=== PATIENT | male | born 1990 | race Caucasian/White ===

== ENCOUNTER 2016-05-19 18:18 | Emergency (ER) | payer SELFPAY ==
[~2016-05-19] VITALS: Ht 180.3 cm; Wt 72.6 kg
[2016-05-19 18:24] VITALS: BP 136/66
--- NOTE | 2016-05-19 19:01 | PHYS DOC ---
Past Medical History Past Medical History: No Pertinent History Past Surgical History: No Surgical History Alcohol Use: Occasionally Drug Use: Marijuana Social History Narrative: denies 05/19/16 Adult General Chief Complaint Chief Complaint: FINGER INJURY HPI HPI Patient is a 26 year old man who presents stating his left pinky finger is stuck in flex position at the PIP joint since he woke up this morning. He states that 2 months ago he had a laceration on the left pinky finger at the DIP joint. He states at that point he could flex and extend his finger at the MIP PIP joints but not DIP joint where the laceration was. He states the laceration healed up okay. Patient denies any new injuries. Review of Systems Review of Systems Constitutional: Denies fever or chills [] Eyes: Denies change in visual acuity, redness, or eye pain [] Musculoskeletal: left pinky finger is stuck in flex position at the PIP joint Integument: Denies rash or skin lesions [] Neurologic: Denies headache, focal weakness or sensory changes [] Endocrine: Denies polyuria or polydipsia [] Allergies Allergies Allergies Coded Allergies Type Severity Reaction Last Updated Verified No Known Drug Allergies 09/26/15 No Physical Exam Physical Exam Constitutional: Well developed, well nourished, no acute distress, non-toxic appearance. [] Skin: Warm, dry, no erythema, no rash. [] Back: No tenderness, no CVA tenderness. [] Extremities: Left pinky finger is in flexed position at the PIP joint. I was able to open up the left pinky finger. At that point he had full range of motion to the left pinky finger MIP PIP and DIP joints. +2 left radial pulse. Adequate ulnar radial medial sensation to the left fingers. Cap refill less than 2 seconds the left pinky finger. Neurologic: Alert and oriented X 3, normal motor function, normal sensory function, no focal deficits noted. [] Psychologic: Affect normal, judgement normal, mood normal. [] Current Patient Data Vital Signs Vital Signs Date Time Temp Pulse Resp B/P Pulse Ox O2 Delivery O2 Flow Rate FiO2 05/19/16 18:24 97.8 73 18 100 Room Air 97.8 EKG EKG [] Radiology/Procedures Radiology/Procedures [] Course & Med Decision Making Course & Med Decision Making Pertinent Labs and Imaging studies reviewed. (See chart for details) Patient is to the fingers of the left pinky finger. X-ray of the left pinky finger interpreted by Dr. Cleveland is negative for any acute findings. He was placed in a left pinky finger form splint by the Ed RN neurovascular exam done by me is normal. Cap refill <2 seconds. Ice elevation encouraged. Follow-up with Ortho in one week. Dragon Disclaimer Dragon Disclaimer This electronic medical record was generated, in whole or in part, using a voice recognition dictation system. Departure Departure Impression: Primary Impression: Trigger finger Disposition: HOME, SELF-CARE Condition: STABLE Referrals: NO PCP (PCP) JOHANNA TOVAR MD see him in one week Patient Instructions: Trigger Finger Problem Qualifiers Primary Impression: Trigger finger Trigger finger location: little finger Laterality: left Qualified Code: M65.352 - Trigger finger, left little finger JACEY EASON APRN May 19, 2016 19:01
--- NOTE | 2016-05-20 09:23 | RAD ---
Indication injury one month earlier. Pain and immobility. An AP view of the left hand was obtained as well as oblique and lateral imaging targeted to the small finger. No acute bony finding is seen. A significant soft tissue abnormality is not apparent.
== END 2016-05-19 19:10 | disposition home or self-care (01) ==
LOC: ER 18:18
DX: M65.352 Trigger finger, left little finger (principal); F12.10 Cannabis abuse, uncomplicated; W23.0XXA Caught, crushed, jammed, or pinched between moving objects, initial encounter; Y93.89 Activity, other specified; Y99.8 Other external cause status; Y92.89 Other specified places as the place of occurrence of the external cause
CPT/HCPCS: 29130; 73140; 99284-25

== ENCOUNTER 2016-10-22 20:37 | Emergency (ER) | payer SELFPAY ==
[~2016-10-22] VITALS: Ht 180.3 cm; Wt 72.7 kg
[2016-10-22 20:55] VITALS: BP 138/77
[2016-10-22 21:14] LABS: BILIRUBIN,URINE NEGATIVE (NEG); GLUCOSE,URINE NEGATIVE (NEG); NITRITE,URINE NEGATIVE (NEG); PH,URINE 6.5; PROTEIN,URINE NEGATIVE (NEG-TRACE); UROBILINOGEN,URINE 0.2 mg/dL (0.2 mg/dL)
[2016-10-22 21:19] LABS: BACTERIA,URINE 0 /HPF (0-FEW); RBC,URINE 0 /HPF (0-2); SQUAMOUS EPITHELIAL CELL,UR OCC /LPF; WBC,URINE 0 /HPF (0-4)
--- NOTE | 2016-10-22 21:28 | PHYS DOC ---
Past Medical History Past Medical History: Asthma Past Surgical History: No Surgical History Additional Information: PPD Alcohol Use: Occasionally Drug Use: Marijuana Adult General Chief Complaint Chief Complaint: SEXUALLY TRANSMITTED DISEASE HPI HPI 26-year-old male with no significant past medical history section active with a girl who he just found out has herpes. Patient has not had any herpes lesions but he came to the emergency department to get tested. She was last sexually active without protection with this partner this morning and would like to know this evening if he is going to get herpes. He has no discharge from his penis nor testicular swelling or pain. No fevers chills sweats or shaking chills patient otherwise feels well and he does report a "skin tag "above his penis is not sure what it is. He describes this evolved recently. Review of Systems Review of Systems Constitutional: Denies fever or chills [] Eyes: Denies change in visual acuity, redness, or eye pain [] HENT: Denies nasal congestion or sore throat [] Respiratory: Denies cough or shortness of breath [] Cardiovascular: No additional information not addressed in HPI [] GI: Denies abdominal pain, nausea, vomiting, bloody stools or diarrhea [] : Denies dysuria or hematuria [] Musculoskeletal: Denies back pain or joint pain [] Integument: Denies rash or skin lesions [] Neurologic: Denies headache, focal weakness or sensory changes [] Endocrine: Denies polyuria or polydipsia [] Allergies Allergies Allergies Coded Allergies Type Severity Reaction Last Updated Verified No Known Drug Allergies 09/26/15 No Physical Exam Physical Exam Well-appearing 26 male no acute distress benign visual exam nontender abdomen and pelvis. Normal appearing external genitalia with no penile discharge , scrotal tenderness or swelling. No inguinal adenopathy. Single skin lesion/skin tag consistent with genital wart above the base of his penis. No evidence of cellulitis in that distribution. Tender exam benign Constitutional: Well developed, well nourished, no acute distress, non-toxic appearance. [] HENT: Normocephalic, atraumatic, bilateral external ears normal, oropharynx moist, no oral exudates, nose normal. [] Eyes: PERRLA, EOMI, conjunctiva normal, no discharge. [] Neck: Normal range of motion, no tenderness, supple, no stridor. [] Cardiovascular:Heart rate regular rhythm, no murmur [] Lungs & Thorax: Bilateral breath sounds clear to auscultation [] Abdomen: Bowel sounds normal, soft, no tenderness, no masses, no pulsatile masses. [] Skin: Warm, dry, no erythema, no rash. [] Back: No tenderness, no CVA tenderness. [] Extremities: No tenderness, no cyanosis, no clubbing, ROM intact, no edema. [] Neurologic: Alert and oriented X 3, normal motor function, normal sensory function, no focal deficits noted. [] Psychologic: Affect normal, judgement normal, mood normal. [] Current Patient Data Vital Signs Vital Signs Date Time Temp Pulse Resp B/P (MAP) Pulse Ox O2 Delivery O2 Flow Rate FiO2 10/22/16 20:55 98.5 59 18 98 Room Air 98.5 Lab Values Laboratory Tests Test 10/22/16 21:05 Urine Color Yellow Urine Clarity Cloudy Urine pH 6.5 Urine Specific [place] 1.010 Urine Protein Negative mg/dL (NEG-TRACE) Urine Glucose (UA) Negative mg/dL (NEG) Urine Ketones (Stick) Negative mg/dL (NEG) Urine Blood Negative (NEG) Urine Nitrite Negative (NEG) Urine Bilirubin Negative (NEG) Urine Urobilinogen Dipstick 0.2 mg/dL (0.2 mg/dL) Urine Leukocyte Esterase Negative (NEG) Urine RBC 0 /HPF (0-2) Urine WBC 0 /HPF (0-4) Urine Squamous Epithelial Cells Occ /LPF Urine Bacteria 0 /HPF (0-FEW) EKG EKG [] Radiology/Procedures Radiology/Procedures [] Course & Med Decision Making Course & Med Decision Making Pertinent Labs and Imaging studies reviewed. (See chart for details) Impression presented for STD screening. He has no clinical evidence of herpes. Patient is a completely normal exam other than single child or lesion. No further workup or treatment indicated here. Discussed with patient at length importance of going to help department for STD screening as well as to discuss treatment options for his genital warts. No further workup or treatment indicated at this time. Patient agrees with outpatient follow-up and strict return precautions given. Patient aware that genital wart is contagious by contact and is aware to maintain good hand washing and contact precaution procedures. [] Dragon Disclaimer Dragon Disclaimer This electronic medical record was generated, in whole or in part, using a voice recognition dictation system. Departure Departure Impression: Primary Impression: Genital warts Additional Impression: STD (sexually transmitted disease) Disposition: 01 HOME, SELF-CARE Condition: GOOD Referrals: NO PCP (PCP) Patient Instructions: Safe Sex Additional Instructions: You have general warts. This is a sexually-transmitted disease caused by a virus. Follow-up with your doctor for reevaluation and to discuss possible treatments for this including cosmetic removal of the wart. Follow-up with the health department for reevaluation and complete STD screening in keeping with their available resources. Always wear condom if he chooses to be sexually active. Be aware that even a condom is not full proof and there is no guarantee a person would not contract a sexual transmitted disease including but not limited to genital warts or herpes from skin contact around the genital area. The only guaranteed way not to contract further sexual transmitted disease is abstinence. This means not having sex at all Problem Qualifiers JAVIER SHEPHERD MD Oct 22, 2016 21:28
== END 2016-10-22 21:37 | disposition home or self-care (01) ==
LOC: ER 20:37
DX: B07.9 Viral wart, unspecified (principal); A64 Unspecified sexually transmitted disease; J45.909 Unspecified asthma, uncomplicated; F17.200 Nicotine dependence, unspecified, uncomplicated
CPT/HCPCS: 81001; 87491; 87591; 99284

== ENCOUNTER 2017-08-09 17:19 | Emergency (ER) | payer BC | END 2017-08-09 17:57 | disposition home or self-care (01) | LOC: ER 17:57 | DX: K02.9 Dental caries, unspecified (principal); J45.909 Unspecified asthma, uncomplicated | CPT/HCPCS: 99283 ==

== ENCOUNTER 2018-08-04 19:45 | Emergency (ER) | payer SELFPAY ==
[~2018-08-04] VITALS: Ht 180.3 cm; Wt 72.6 kg
[~2018-08-04 19:45] MED LIST: PENI500T PO
[2018-08-04 20:00] VITALS: BP 125/60
[2018-08-04] MEDS ORDERED: DICL50TA4 PO (20:52)
[2018-08-04] MEDS ORDERED: PENI500T PO (20:52)
--- NOTE | 2018-08-04 20:53 | PHYS DOC ---
Past Medical History Past Medical History: No Pertinent History, Asthma Past Surgical History: No Surgical History Alcohol Use: Occasionally Drug Use: Marijuana Adult General Chief Complaint Chief Complaint: DENTAL PROBLEM HPI HPI Patient is a 28 year old female who presents complaining of 8 out of 10 left lower gum dental pain, symptoms began yesterday. States has seen a dentist before and they told him he needs to get a surgeon and have his wisdom teeth "cut down". Denies any fever or trismus. Review of Systems Review of Systems Constitutional: Denies fever or chills [] Eyes: Denies change in visual acuity, redness, or eye pain [] HENT: Reports dental pain. Denies nasal congestion or sore throat [] Musculoskeletal: Denies back pain or joint pain [] Integument: Denies rash or skin lesions [] Neurologic: Denies headache, focal weakness or sensory changes [] All other systems were reviewed and found to be within normal limits, except as documented in this note. Allergies Allergies Allergies Coded Allergies Type Severity Reaction Last Updated Verified No Known Drug Allergies 09/26/15 No Physical Exam Physical Exam Constitutional: Well developed, well nourished, no acute distress, non-toxic appearance. [] HENT: Normocephalic, atraumatic, bilateral external ears normal, oropharynx moist, no oral exudates, nose normal. [] Sells teeth on the left and lower gums are a broken and decayed, very poor dentition noted. No gum erythema. Skin: Warm, dry, no erythema, no rash. [] Back: No tenderness, no CVA tenderness. [] Extremities: No tenderness, no cyanosis, no clubbing, ROM intact, no edema. [] Neurologic: Alert and oriented X 3, normal motor function, normal sensory function, no focal deficits noted. [] Psychologic: Affect normal, judgement normal, mood normal. [] Current Patient Data Vital Signs Vital Signs Date Time Temp Pulse Resp B/P (MAP) Pulse Ox O2 Delivery O2 Flow Rate FiO2 08/04/18 20:00 98.6 71 16 125/60 (81) 96 Room Air 98.6 EKG EKG [] Radiology/Procedures Radiology/Procedures [] Course & Med Decision Making Course & Med Decision Making Pertinent Labs and Imaging studies reviewed. (See chart for details) This is a 28-year-old male patient presented to the ED today with dental pain, noted for infected dental caries, discharged in penicillin and diclofenac. Follow-up with his own dentist in [address] Disclaimer Dragon Disclaimer This electronic medical record was generated, in whole or in part, using a voice recognition dictation system. Departure Departure Impression: Primary Impression: Infected dental caries Additional Impression: Dentalgia Disposition: HOME, SELF-CARE Condition: STABLE (total dose) Referrals: NO PCP (PCP) follow up with your dentist in 1 week Patient Instructions: Dental Caries Additional Instructions: You were evaluated in the emergency room for dental infection, complete your antibiotics. Follow-up with your dentist as soon as you can. Take the prescribed pain medicine as needed for pain. Scripts Diclofenac Sodium (DICLOFENAC SODIUM) 50 Mg Tablet.dr 1 TAB PO BID, #20 TAB 0 Refills Prov: JACEY EASON APRN 08/04/18 Penicillin V Potassium (PENICILLIN V POTASSIUM) 500 Mg Tablet 1 TAB PO BID, #20 TAB Prov: JACEY EASON APRN 08/04/18 Problem Qualifiers JACEY EASON APRN Aug 04, 2018 20:53
== END 2018-08-04 21:02 | disposition home or self-care (01) ==
LOC: ER 19:45
DX: K02.9 Dental caries, unspecified (principal); J45.909 Unspecified asthma, uncomplicated
CPT/HCPCS: 99283

== ENCOUNTER 2018-11-25 22:31 | Emergency (ER) | payer SELFPAY ==
[~2018-11-25] VITALS: Ht 180.3 cm; Wt 72.6 kg
[~2018-11-25 22:31] MED LIST changes: +DICL50TA4 PO
[2018-11-25 23:24] VITALS: BP 116/56
[2018-11-26] MEDS ORDERED: GABA300C18 PO (00:04)
[2018-11-26] MEDS ORDERED: PENI500T PO (00:04)
[2018-11-26] MEDS ORDERED: NAPR-514 PO (00:04)
--- NOTE | 2018-11-26 00:05 | PHYS DOC ---
Past Medical History Past Medical History: No Pertinent History, Asthma Past Surgical History: No Surgical History Alcohol Use: Occasionally Drug Use: Marijuana Adult General Chief Complaint Chief Complaint: DENTAL PROBLEM HPI HPI Patient is a 28 year old male who presents to the ED today complaining of dental pain for couple days as well as numbness and tingling to bilateral upper extremities 4 weeks. Patient denies any known injury. Denies any neck pain. Denies any chest pain or shortness of breath. He states he has received new insurance from his job and will be able to start following up with her dentist and her primary care doctor if we give him one. Review of Systems Review of Systems Constitutional: Denies fever or chills [] Eyes: Denies change in visual acuity, redness, or eye pain [] HENT: Reports dental pain. Denies nasal congestion or sore throat [] Respiratory: Denies cough or shortness of breath [] Cardiovascular: No additional information not addressed in HPI [] GI: Denies abdominal pain, nausea, vomiting, bloody stools or diarrhea [] : Denies dysuria or hematuria [] Musculoskeletal: Reports numbness to bilateral upper extremities. Reports tingling to bilateral upper extremities. Denies back pain or joint pain [] Integument: Denies rash or skin lesions [] Neurologic: Denies headache, focal weakness or sensory changes [] All other systems were reviewed and found to be within normal limits, except as documented in this note. Allergies Allergies Allergies Coded Allergies Type Severity Reaction Last Updated Verified No Known Drug Allergies 09/26/15 No Physical Exam Physical Exam Constitutional: Well developed, well nourished, no acute distress, non-toxic appearance. [] HENT: Scattered dental caries noted. Normocephalic, atraumatic, bilateral external ears normal, oropharynx moist, no oral exudates, nose normal. [] Eyes: PERRLA, EOMI, conjunctiva normal, no discharge. [] Neck: Normal range of motion, no tenderness, supple, no stridor. [] Cardiovascular:Heart rate regular rhythm, no murmur [] Lungs & Thorax: Bilateral breath sounds clear to auscultation [] Abdomen: Bowel sounds normal, soft, no tenderness, no masses, no pulsatile masses. [] Skin: Warm, dry, no erythema, no rash. [] Back: No tenderness, no CVA tenderness. [] Extremities: No tenderness, no cyanosis, no clubbing, ROM intact, no edema. [] Neurologic: Alert and oriented X 3, normal motor function, normal sensory functi on, no focal deficits noted. [] Psychologic: Affect normal, judgement normal, mood normal. [] Current Patient Data Vital Signs Vital Signs Date Time Temp Pulse Resp B/P (MAP) Pulse Ox O2 Delivery O2 Flow Rate FiO2 11/25/18 23:24 97.0 47 14 116/56 (76) 98 Room Air 97.0 EKG EKG [] Radiology/Procedures Radiology/Procedures [] Course & Med Decision Making Course & Med Decision Making Pertinent Labs and Imaging studies reviewed. (See chart for details) This is a [age]-year-old male patient presenting to the ED today with dental caries as well as radiculopathy. Prescription for penicillin provided. Gabapentin provided. Naproxen as well as cyclobenzaprine. Follow-up with PCP and dentist. Lane Disclaimer Lane Disclaimer This electronic medical record was generated, in whole or in part, using a voice recognition dictation system. Departure Departure Impression: Primary Impression: Infected dental caries Additional Impressions: Dentalgia Radicular pain in right arm Radicular pain in left arm Disposition: 01 HOME, SELF-CARE Condition: STABLE Referrals: NO PCP (PCP) follow up with your dentist and primary care doctor Patient Instructions: Dental Caries Additional Instructions: You were evaluated in the emergency room for dental pain as well as radiculopathy. Take the prescribed medications as ordered. Follow-up with your dentist as well as a primary care doctor as soon as you can. Scripts Naproxen (NAPROXEN) 500 Mg Tablet 1 TAB PO BID, #20 TAB Prov: JACEY EASON APRN 11/26/18 Gabapentin (GABAPENTIN ) 300 Mg Capsule 300 MG PO TID for NEUROGENIC PAIN, #30 CAP Prov: JACEY EASON APRN 11/26/18 Penicillin V Potassium (PENICILLIN V POTASSIUM) 500 Mg Tablet 1 TAB PO BID, #20 TAB Prov: JACEY EASON [employer] 11/26/18 Problem Qualifiers JACEY EASON APRN Nov 26, 2018 00:04
== END 2018-11-26 00:20 | disposition home or self-care (01) ==
LOC: ER 22:31
DX: K02.9 Dental caries, unspecified (principal); K04.7 Periapical abscess without sinus; M54.10 Radiculopathy, site unspecified; J45.909 Unspecified asthma, uncomplicated
CPT/HCPCS: 99283

== ENCOUNTER 2018-11-26 09:44 | Inpatient (IN) | payer SELFPAY ==
[~2018-11-26] VITALS: Ht 180.3 cm; Wt 70.5 kg
[2018-11-26] VITALS (9 sets, daily range): BP systolic 112–126; BP diastolic 49–80
[~2018-11-26 09:44] MED LIST changes: +GABA300C18 PO; +NAPR-514 PO
--- NOTE | 2018-11-26 09:56 | PHYS DOC ---
Past Medical History Past Medical History: No Pertinent History, Asthma (TREY BARBOSA APRN) Past Surgical History: No Surgical History (TREY BARBOSA APRN) Alcohol Use: Occasionally Drug Use: Marijuana (TREY BARBOSA APRN) Adult General Chief Complaint Chief Complaint: ABDOMINAL PAIN HPI HPI Patient is a 28 year old male who presents with diffuse abdominal pain, awoke with pain today, vomited x2, normal stool today, no fevers or diarrhea, no urinary or testicular complaints. Denies trauma. No ETOH abuse. Seen here yesterday for dental pain, did not get medications filled Arrived via EMS, no hx of similar pain (TREY BARBOSA APRN) Review of Systems Review of Systems Constitutional: Denies fever or chills [] Eyes: Denies change in visual acuity, redness, or eye pain [] HENT: Denies nasal congestion or sore throat [] Respiratory: Denies cough or shortness of breath [] Cardiovascular: No additional information not addressed in HPI [] GI: Denies bloody stools or diarrhea []c/o diffuse abdominal pain and vomiting : Denies dysuria or hematuria [] Musculoskeletal: Denies back pain or joint pain [] Integument: Denies rash or skin lesions [] Neurologic: Denies headache, focal weakness or sensory changes [] Endocrine: Denies polyuria or polydipsia [] All other systems were reviewed and found to be within normal limits, except as documented in this note. (TREY BARBOSA APRN) Current Medications Current Medications Current Medications Medications (Trade) Dose Ordered Sig/Mar Start Time Stop Time Status Last Admin Dose Admin Info (CONTRAST GIVEN -- Rx MONITORING) 1 each PRN DAILY PRN 11/26/18 11:15 11/28/18 11:14 Iohexol (Omnipaque 240 Mg/ml) 30 ml 1X ONCE 11/26/18 11:00 11/26/18 11:03 DC 11/26/18 11:29 30 ML Iohexol (Omnipaque 300 Mg/ml) 75 ml 1X ONCE 11/26/18 11:00 11/26/18 11:03 DC 11/26/18 11:29 75 ML Morphine Sulfate (Morphine Sulfate) 4 mg 1X ONCE 11/26/18 10:00 11/26/18 10:01 DC 11/26/18 10:23 4 MG Ondansetron HCl (Zofran) 4 mg 1X ONCE 11/26/18 10:00 11/26/18 10:01 DC 11/26/18 10:23 4 MG Sodium Chloride 1,000 ml @ 1,000 mls/hr 1X ONCE 11/26/18 12:00 11/26/18 12:59 11/26/18 11:58 1,000 MLS/HR (TREY BARBOSA APRN) Allergies Allergies Allergies Coded Allergies Type Severity Reaction Last Updated Verified No Known Drug Allergies 09/26/15 No (TREY BARBOSA APRN) Physical Exam Physical Exam Constitutional: Well developed, well nourished, no acute distress, non-toxic appearance. [] HENT: Normocephalic, atraumatic, bilateral external ears normal, oropharynx moist, no oral exudates, nose normal. [] Eyes: PERRLA, EOMI, conjunctiva normal, no discharge. [] Neck: Normal range of motion, no tenderness, supple, no stridor. [] Cardiovascular:Heart rate regular rhythm, no murmur [] Lungs & Thorax: Bilateral breath sounds clear to auscultation [] Abdomen: Bowel sounds normal, soft, no masses, no pulsatile masses. [] reports diffuse TTP, soft,no distention, no masses, guarding entire abdomen, no rebound : no testicular pain or swelling Skin: Warm, dry, no erythema, no rash. [] Back: No tenderness, no CVA tenderness. [] Extremities: No tenderness, no cyanosis, no clubbing, ROM intact, no edema. [] Neurologic: Alert and oriented X 3, normal motor function, normal sensory function, no focal deficits noted. [] Psychologic: Affect normal, judgement normal, mood normal. [] (TREY BARBOSA APRN) Current Patient Data Vital Signs Vital Signs Date Time Temp Pulse Resp B/P (MAP) Pulse Ox O2 Delivery O2 Flow Rate FiO2 11/26/18 11:30 74 16 132/60 (84) 100 Room Air 11/26/18 09:44 98.3 98.3 Lab Values Laboratory Tests Test 11/26/18 10:15 11/26/18 11:56 White Blood Count 11.4 x10^3/uL (4.0-11.0) H Red Blood Count 4.93 x10^6/uL (4.30-5.70) Hemoglobin 15.7 g/dL (13.0-17.5) Hematocrit 45.4 % (39.0-53.0) Mean Corpuscular Volume 92 fL (79-100) Mean Corpuscular Hemoglobin 32 pg (25-35) Mean Corpuscular Hemoglobin Concent 35 g/dL (31-37) Red Cell Distribution Width 12.7 % (11.5-14.5) Platelet Count 161 x10^3/uL (140-400) Neutrophils (%) (Auto) 86 % (31-73) H Lymphocytes (%) (Auto) 9 % (24-48) L Monocytes (%) (Auto) 4 % (0-9) Eosinophils (%) (Auto) 0 % (0-3) Basophils (%) (Auto) 0 % (0-3) Neutrophils # (Auto) 9.8 x10^3/uL (1.8-7.7) H Lymphocytes # (Auto) 1.0 x10^3/uL (1.0-4.8) Monocytes # (Auto) 0.5 x10^3/uL (0.0-1.1) Eosinophils # (Auto) 0.0 x10^3/uL (0.0-0.7) Basophils # (Auto) 0.0 x10^3/uL (0.0-0.2) Segmented Neutrophils % 55 % (35-66) Band Neutrophils % 29 % (0-9) H Lymphocytes % 9 % (24-48) L Monocytes % 4 % (0-10) Metamyelocytes % 3 % (0-0) H Platelet Estimate Adequate (ADEQUATE) Anisocytosis Slight Sodium Level 141 mmol/L (136-145) Potassium Level 3.7 mmol/L (3.5-5.1) Chloride Level 103 mmol/L (98-107) Carbon Dioxide Level 29 mmol/L (21-32) Anion Gap 9 (6-14) Blood Urea Nitrogen 12 mg/dL (8-26) Creatinine 1.2 mg/dL (0.7-1.3) Estimated GFR (Cockcroft-Gault) 73.2 BUN/Creatinine Ratio 10 (6-20) Glucose Level 189 mg/dL (70-99) H Calcium Level 9.2 mg/dL (8.5-10.1) Total Bilirubin 0.6 mg/dL (0.2-1.0) Aspartate Amino Transferase (AST) 15 U/L (15-37) Alanine Aminotransferase (ALT) 14 U/L (16-63) L Alkaline Phosphatase 49 U/L (46-116) Total Protein 7.5 g/dL (6.4-8.2) Albumin 4.3 g/dL (3.4-5.0) Albumin/Globulin Ratio 1.3 (1.0-1.7) Lipase 210 U/L (73-393) Urine Collection Type Unknown Urine Color Yellow Urine Clarity Cloudy Urine pH 6.0 Urine Specific Moffat >=1.030 Urine Protein Negative mg/dL (NEG-TRACE) Urine Glucose (UA) Negative mg/dL (NEG) Urine Ketones (Stick) Negative mg/dL (NEG) Urine Blood Negative (NEG) Urine Nitrite Negative (NEG) Urine Bilirubin Negative (NEG) Urine Urobilinogen Dipstick 0.2 mg/dL (0.2 mg/dL) Urine Leukocyte Esterase Negative (NEG) Urine RBC 1-2 /HPF (0-2) Urine WBC 1-4 /HPF (0-4) Urine Squamous Epithelial Cells Occ /LPF Urine Bacteria Few /HPF (0-FEW) Urine Mucus Marked /LPF Laboratory Tests 11/26/18 10:15 Laboratory Tests 11/26/18 10:15 (TREY BARBOSA APRN) EKG EKG [] (TREY BARBOSA APRN) Radiology/Procedures Radiology/Procedures []Signed PATIENT: REI SAXENA EACCOUNT: [id number] : 1990 LOCATION: ER AGE: 28 SEX: M EXAM STATUS: REG ER ORD. PHYSICIAN: TREY BARBOSA APRN REASON: abd pain PROCEDURE: CT ABD PELV W/ORAL&IV CONTRAST Examination: CT ABD PELV W/ORAL IV CONTRAST History: Abdominal pain Comparison/Correlation: None Findings: Axial images of the abdomen and pelvis were obtained following IV and oral contrast. Sagittal and coronal reformatted images were provided. Visualized lung bases are clear. Minimal contrast in the distal esophagus is present. Oral contrast distends the stomach. Liver, spleen, pancreas, adrenal glands, and kidneys are normal. Gallbladder fossa is unremarkable. Minimal ascites is noted about the inferior tip of the liver extending into the right paracolic gutter. Ascites on the inferior tip of the spleen was also present. High density of mesenteric fat is evident. Moderate amount of pelvic fluid is present in the rectovesical pouch. Limited mesenteric fat limits assessment. Limited opacification of bowel is noted also limiting assessment. There is a collection within the right low pelvic sidewall region on axial image 71 which measures up to 2.4 cm x 1.3 cm. Surrounding edema is noted. A tubular structure is noted to lead to this collection. This appears represent appendicitis with a small abscess. No significant extraluminal nondependent gas is delineated. There is mild distention of small bowel within the lower abdomen and pelvis which likely represents ileus. No suspicious transition point to suggest obstruction. Urinary bladder is unremarkable. Bony structures are unremarkable. Impression: Collection within the right pelvic sidewall region which appears to present a small appendiceal abscess. Associated ascites and pelvic fluid. PQRS Compliance Statement: One or more of the following individualized dose reduction techniques were utilized for this examination: 1. Automated exposure control 2. Adjustment of the mA and/or kV according to patient size 3. Use of iterative reconstruction technique Electronically signed by: Ronnell Bradshaw MD (11/26/2018 12:02 PM) [facility] DICTATED and SIGNED BY: RONNELL BRADSHAW MD DATE: 11/26/18 1202 Impressions: Acute appendicitis with abscess (TREY BARBOSA APRN) Course & Med Decision Making Course & Med Decision Making Pertinent Labs and Imaging studies reviewed. (See chart for details) []C/o diffuse sudden abdominal pain with vomiting VSS, abdomen soft Will obtain labs and CT, medications for symptoms Pain not well controlled but resting off and on Labs and CT reviewed, + appendicitis with abscess. NPO since yesterday. No fevers Consulted general surgery, Dr uHerta did evaluate the patient in the ER and will admit to his service and take to the OR (TREY BARBOSA APRN) Course & Med Decision Making Staff Physician Addendum: I was working in the ER during the course of this patient's visit. I was available for consultation as needed, but I was not directly involved in the care of this patient. (WILFRED HAMILTON MD) Dragon Disclaimer Dragon Disclaimer This electronic medical record was generated, in whole or in part, using a voice recognition dictation system. (TREY BARBOSA APRN) Departure Departure Impression: Primary Impression: Acute appendicitis with appendiceal abscess Disposition: ADMITTED INPATIENT (Dr Huerta) Condition: STABLE Referrals: NO PCP (PCP) TREY BARBOSA APRN Nov 26, 2018 09:56 WILFRED HAMILTON MD Nov 27, 2018 08:04
[2018-11-26] MEDS ORDERED: ONDANSETRON PF 4 MG/2 ML VIAL. IVP ONE (10:00)
[2018-11-26] MEDS ORDERED: IV NORMAL SALINE 1000ML BAG 1,000 ML IV ONE ×2 (10:00→12:00)
[2018-11-26] MEDS ORDERED: MORPHINE SULFATE 4 MG/ML VIAL. IV ONE (10:00)
[2018-11-26 10:31] LABS: BASO % 0 % (0-3); EOS % 0 % (0-3); HEMATOCRIT 45.4 % (39.0-53.0); HEMOGLOBIN 15.7 g/dL (13.0-17.5); LYMPH % 9 % (24-48); MEAN CORPUSCULAR HEMOGLOBIN 32 pg (25-35); MEAN CORPUSCULAR HGB CONC 35 g/dL (31-37); MEAN CORPUSCULAR VOLUME 92 fL (79-100); MONO # 0.5 x10^3/uL (0.0-1.1); MONO % 4 % (0-9); NEUT # 9.8 x10^3/uL (1.8-7.7); NEUT % 86 % (31-73); PLATELET COUNT 161 x10^3/uL (140-400); RED BLOOD COUNT 4.93 x10^6/uL (4.30-5.70); RED CELL DISTRIBUTION WIDTH 12.7 % (11.5-14.5); WHITE BLOOD COUNT 11.4 x10^3/uL (4.0-11.0)
[2018-11-26 10:38] LABS: CALCIUM 9.2 mg/dL (8.5-10.1); CREATININE 1.2 mg/dL (0.7-1.3); GFR 73.2; POTASSIUM 3.7 mmol/L (3.5-5.1)
[2018-11-26 10:43] LABS: ALBUMIN 4.3 g/dL (3.4-5.0); ALBUMIN/GLOBULIN RATIO 1.3 (1.0-1.7); TOTAL BILIRUBIN 0.6 mg/dL (0.2-1.0); TOTAL PROTEIN 7.5 g/dL (6.4-8.2)
[2018-11-26] MEDS ORDERED: IOHEXOL 300 MG/ML 100ML VIAL. IV ONE (11:00)
[2018-11-26] MEDS ORDERED: IOHEXOL 240 MG/ML 50ML VIAL. PO ONE (11:00)
[2018-11-26] MEDS ORDERED: CONTRAST GIVEN. MC PRN (11:15)
[2018-11-26 11:52] LABS: % BANDS 29 % (0-9); % LYMPHS 9 % (24-48); % METAS 3 % (0-0); % MONOS 4 % (0-10); % SEGS 55 % (35-66); ANISOCYTOSIS SLIGHT; PLT ESTIMATE ADEQUATE (ADEQUATE)
--- NOTE | 2018-11-26 12:04 | RAD ---
Examination: CT ABD PELV W/ORAL IV CONTRAST History: Abdominal pain Comparison/Correlation: None Findings: Axial images of the abdomen and pelvis were obtained following IV and oral contrast. Sagittal and coronal reformatted images were provided. Visualized lung bases are clear. Minimal contrast in the distal esophagus is present. Oral contrast distends the stomach. Liver, spleen, pancreas, adrenal glands, and kidneys are normal. Gallbladder fossa is unremarkable. Minimal ascites is noted about the inferior tip of the liver extending into the right paracolic gutter. Ascites on the inferior tip of the spleen was also present. High density of mesenteric fat is evident. Moderate amount of pelvic fluid is present in the rectovesical pouch. Limited mesenteric fat limits assessment. Limited opacification of bowel is noted also limiting assessment. There is a collection within the right low pelvic sidewall region on axial image 71 which measures up to 2.4 cm x 1.3 cm. Surrounding edema is noted. A tubular structure is noted to lead to this collection. This appears represent appendicitis with a small abscess. No significant extraluminal nondependent gas is delineated. There is mild distention of small bowel within the lower abdomen and pelvis which likely represents ileus. No suspicious transition point to suggest obstruction. Urinary bladder is unremarkable. Bony structures are unremarkable. Impression: Collection within the right pelvic sidewall region which appears to present a small appendiceal abscess. Associated ascites and pelvic fluid. PQRS Compliance Statement: One or more of the following individualized dose reduction techniques were utilized for this examination: 1. Automated exposure control 2. Adjustment of the mA and/or kV according to patient size 3. Use of iterative reconstruction technique Electronically signed by: Ronnell Romero MD (11/26/2018 12:02 PM) [facility]
[2018-11-26 12:06] LABS: BILIRUBIN,URINE NEGATIVE (NEG); CLARITY,URINE CLOUDY; COLOR,URINE YELLOW; NITRITE,URINE NEGATIVE (NEG); PROTEIN,URINE NEGATIVE (NEG-TRACE); UROBILINOGEN,URINE 0.2 mg/dL (0.2 mg/dL)
[2018-11-26 12:25] LABS: BACTERIA,URINE FEW /HPF (0-FEW)
[2018-11-26 12:26] LABS: SQUAMOUS EPITHELIAL CELL,UR OCC /LPF
--- NOTE | 2018-11-26 12:42 | PDOC1 ---
History and Physical Date of Admission Date of Admission DATE: 11/26/18 TIME: 12:38 Identification/Chief Complaint Chief Complaint Right lower quadrant pain Source Source: Chart review, Patient History of Present Illness History of Present Illness Titus is a 28-year-old male who was in the ED yesterday for "dental pain". He awoke this morning with abdominal pain and nausea. He came to the ER for a CT scan of the abdomen pelvis is consistent with a perforated appendicitis and small periappendiceal abscess. He is brought for appendectomy Past Medical History Cardiovascular: No pertinent hx Pulmonary: No pertinent hx Renal/: No pertinent hx Past Surgical History Past Surgical History: No pertinent history Family History Family History: No Significant Social History Smoke: 1 pack per day ALCOHOL: none Drugs: None Current Problem List Problem List Problems Medical Problems: (1) Acute appendicitis with appendiceal abscess Status: Acute Current Medications Current Medications Current Medications Morphine Sulfate (Morphine Sulfate) 4 mg 1X ONCE IV Last administered on 11/26/18at 10:23; Start 11/26/18 at 10:00; Stop 11/26/18 at 10:01; Status DC Ondansetron HCl (Zofran) 4 mg 1X ONCE IVP Last administered on 11/26/18at 10:23; Start 11/26/18 at 10:00; Stop 11/26/18 at 10:01; Status DC Sodium Chloride 1,000 ml @ 1,000 mls/hr 1X ONCE IV Last administered on 11/26/18at 10:16; Start 11/26/18 at 10:00; Stop 11/26/18 at 10:59; Status DC Iohexol (Omnipaque 240 Mg/ml) 30 ml 1X ONCE PO Last administered on 11/26/18at 11:29; Start 11/26/18 at 11:00; Stop 11/26/18 at 11:03; Status DC Iohexol (Omnipaque 300 Mg/ml) 75 ml 1X ONCE IV Last administered on 11/26/18at 11:29; Start 11/26/18 at 11:00; Stop 11/26/18 at 11:03; Status DC Info (CONTRAST GIVEN -- Rx MONITORING) 1 each PRN DAILY PRN MC SEE COMMENTS; Start 11/26/18 at 11:15; Stop 11/28/18 at 11:14 Sodium Chloride 1,000 ml @ 1,000 mls/hr 1X ONCE IV Last administered on 11/26/18at 11:58; Start 11/26/18 at 12:00; Stop 11/26/18 at 12:59 Cefazolin Sodium/ Dextrose 50 ml @ 100 mls/hr 1X ONCE IV ; Start 11/26/18 at 12:45; Stop 11/26/18 at 13:14; Status UNV Metronidazole 100 ml @ 100 mls/hr 1X ONCE IV ; Start 11/26/18 at 12:45; Stop 11/26/18 at 13:44; Status UNV Active Scripts Active Naproxen 500 Mg Tablet 1 Tab PO BID Gabapentin (Gabapentin) 300 Mg Capsule 300 Mg PO TID Penicillin V Potassium 500 Mg Tablet 1 Tab PO BID Diclofenac Sodium 50 Mg Tablet.dr 1 Tab PO BID Penicillin V Potassium 500 Mg Tablet 1 Tab PO BID Penicillin V Potassium 500 Mg Tablet 2 Tab PO BID 7 Days Allergies Allergies: Coded Allergies: No Known Drug Allergies (Unverified , 09/26/15) ROS Gastrointestinal: Yes Nausea, Yes Abdominal Pain Physical Exam General: Alert, mild distress Lungs: Normal air movement Heart: RRR Abdomen: Soft, Other (tender to palpation right lower quadrant) Skin: Other (warm, dry) Vitals Vitals Vital Signs Date Time Temp Pulse Resp B/P (MAP) Pulse Ox O2 Delivery O2 Flow Rate FiO2 11/26/18 12:00 64 22 123/56 (78) 100 Room Air 11/26/18 09:44 98.3 98.3 Labs Labs Laboratory Tests Test 11/26/18 10:15 11/26/18 11:56 White Blood Count 11.4 x10^3/uL (4.0-11.0) Red Blood Count 4.93 x10^6/uL (4.30-5.70) Hemoglobin 15.7 g/dL (13.0-17.5) Hematocrit 45.4 % (39.0-53.0) Mean Corpuscular Volume 92 fL (79-100) Mean Corpuscular Hemoglobin 32 pg (25-35) Mean Corpuscular Hemoglobin Concent 35 g/dL (31-37) Red Cell Distribution Width 12.7 % (11.5-14.5) Platelet Count 161 x10^3/uL (140-400) Neutrophils (%) (Auto) 86 % (31-73) Lymphocytes (%) (Auto) 9 % (24-48) Monocytes (%) (Auto) 4 % (0-9) Eosinophils (%) (Auto) 0 % (0-3) Basophils (%) (Auto) 0 % (0-3) Neutrophils # (Auto) 9.8 x10^3/uL (1.8-7.7) Lymphocytes # (Auto) 1.0 x10^3/uL (1.0-4.8) Monocytes # (Auto) 0.5 x10^3/uL (0.0-1.1) Eosinophils # (Auto) 0.0 x10^3/uL (0.0-0.7) Basophils # (Auto) 0.0 x10^3/uL (0.0-0.2) Segmented Neutrophils % 55 % (35-66) Band Neutrophils % 29 % (0-9) Lymphocytes % 9 % (24-48) Monocytes % 4 % (0-10) Metamyelocytes % 3 % (0-0) Platelet Estimate Adequate (ADEQUATE) Anisocytosis Slight Sodium Level 141 mmol/L (136-145) Potassium Level 3.7 mmol/L (3.5-5.1) Chloride Level 103 mmol/L (98-107) Carbon Dioxide Level 29 mmol/L (21-32) Anion Gap 9 (6-14) Blood Urea Nitrogen 12 mg/dL (8-26) Creatinine 1.2 mg/dL (0.7-1.3) Estimated GFR (Cockcroft-Gault) 73.2 BUN/Creatinine Ratio 10 (6-20) Glucose Level 189 mg/dL (70-99) Calcium Level 9.2 mg/dL (8.5-10.1) Total Bilirubin 0.6 mg/dL (0.2-1.0) Aspartate Amino Transf (AST/SGOT) 15 U/L (15-37) Alanine Aminotransferase (ALT/SGPT) 14 U/L (16-63) Alkaline Phosphatase 49 U/L (46-116) Total Protein 7.5 g/dL (6.4-8.2) Albumin 4.3 g/dL (3.4-5.0) Albumin/Globulin Ratio 1.3 (1.0-1.7) Lipase 210 U/L (73-393) Urine Collection Type Unknown Urine Color Yellow Urine Clarity Cloudy Urine pH 6.0 Urine Specific Catarina >=1.030 Urine Protein Negative mg/dL (NEG-TRACE) Urine Glucose (UA) Negative mg/dL (NEG) Urine Ketones (Stick) Negative mg/dL (NEG) Urine Blood Negative (NEG) Urine Nitrite Negative (NEG) Urine Bilirubin Negative (NEG) Urine Urobilinogen Dipstick 0.2 mg/dL (0.2 mg/dL) Urine Leukocyte Esterase Negative (NEG) Urine RBC 1-2 /HPF (0-2) Urine WBC 1-4 /HPF (0-4) Urine Squamous Epithelial Cells Occ /LPF Urine Bacteria Few /HPF (0-FEW) Urine Mucus Marked /LPF Laboratory Tests Test 11/26/18 10:15 11/26/18 11:56 White Blood Count 11.4 x10^3/uL (4.0-11.0) Red Blood Count 4.93 x10^6/uL (4.30-5.70) Hemoglobin 15.7 g/dL (13.0-17.5) Hematocrit 45.4 % (39.0-53.0) Mean Corpuscular Volume 92 fL (79-100) Mean Corpuscular Hemoglobin 32 pg (25-35) Mean Corpuscular Hemoglobin Concent 35 g/dL (31-37) Red Cell Distribution Width 12.7 % (11.5-14.5) Platelet Count 161 x10^3/uL (140-400) Neutrophils (%) (Auto) 86 % (31-73) Lymphocytes (%) (Auto) 9 % (24-48) Monocytes (%) (Auto) 4 % (0-9) Eosinophils (%) (Auto) 0 % (0-3) Basophils (%) (Auto) 0 % (0-3) Neutrophils # (Auto) 9.8 x10^3/uL (1.8-7.7) Lymphocytes # (Auto) 1.0 x10^3/uL (1.0-4.8) Monocytes # (Auto) 0.5 x10^3/uL (0.0-1.1) Eosinophils # (Auto) 0.0 x10^3/uL (0.0-0.7) Basophils # (Auto) 0.0 x10^3/uL (0.0-0.2) Segmented Neutrophils % 55 % (35-66) Band Neutrophils % 29 % (0-9) Lymphocytes % 9 % (24-48) Monocytes % 4 % (0-10) Metamyelocytes % 3 % (0-0) Platelet Estimate Adequate (ADEQUATE) Anisocytosis Slight Sodium Level 141 mmol/L (136-145) Potassium Level 3.7 mmol/L (3.5-5.1) Chloride Level 103 mmol/L (98-107) Carbon Dioxide Level 29 mmol/L (21-32) Anion Gap 9 (6-14) Blood Urea Nitrogen 12 mg/dL (8-26) Creatinine 1.2 mg/dL (0.7-1.3) Estimated GFR (Cockcroft-Gault) 73.2 BUN/Creatinine Ratio 10 (6-20) Glucose Level 189 mg/dL (70-99) Calcium Level 9.2 mg/dL (8.5-10.1) Total Bilirubin 0.6 mg/dL (0.2-1.0) Aspartate Amino Transf (AST/SGOT) 15 U/L (15-37) Alanine Aminotransferase (ALT/SGPT) 14 U/L (16-63) Alkaline Phosphatase 49 U/L (46-116) Total Protein 7.5 g/dL (6.4-8.2) Albumin 4.3 g/dL (3.4-5.0) Albumin/Globulin Ratio 1.3 (1.0-1.7) Lipase 210 U/L (73-393) Urine Collection Type Unknown Urine Color Yellow Urine Clarity Cloudy Urine pH 6.0 Urine Specific Catarina >=1.030 Urine Protein Negative mg/dL (NEG-TRACE) Urine Glucose (UA) Negative mg/dL (NEG) Urine Ketones (Stick) Negative mg/dL (NEG) Urine Blood Negative (NEG) Urine Nitrite Negative (NEG) Urine Bilirubin Negative (NEG) Urine Urobilinogen Dipstick 0.2 mg/dL (0.2 mg/dL) Urine Leukocyte Esterase Negative (NEG) Urine RBC 1-2 /HPF (0-2) Urine WBC 1-4 /HPF (0-4) Urine Squamous Epithelial Cells Occ /LPF Urine Bacteria Few /HPF (0-FEW) Urine Mucus Marked /LPF Images Images CT scan done today is reviewed VTE Prophylaxis Ordered VTE Prophylaxis Devices: Yes VTE Pharmacological Prophylaxi: No Assessment/Plan Assessment/Plan Acute appendicitis with periappendiceal abscess Explained risks of laparoscopic appendectomy including but not limited to bleeding, infection, injury to bowel or bladder requiring further surgical intervention, possible need for an "open" procedure, possible drain. He will proceed NIYA MOLINA MD Nov 26, 2018 12:42
[2018-11-26] MEDS ORDERED: BUPIVACAINE-EPI 0.5%-1:200000 MPF 30 ML VIAL. INJ ONE (13:00)
[2018-11-26] MEDS ORDERED: BACITRACIN 50,000 UNIT in IV NORMAL SALINE 500ML BAG 500 ML IRR ONE (13:00)
[2018-11-26] MEDS ORDERED: fentaNYL PF VIAL 100 MCG/2 ML VIAL ONE ×3 (13:08→15:23)
[2018-11-26] MEDS ORDERED: IV RINGERS,LACTATED 1000ML 1,000 ML IV SCH (13:10)
[2018-11-26] MEDS ORDERED: PROCHLORPERAZINE 10 MG/2 ML VIAL. IV PRN (13:15)
[2018-11-26] MEDS ORDERED: ONDANSETRON PF 4 MG/2 ML VIAL. IV PRN ×2 (13:15→15:00)
[2018-11-26] MEDS ORDERED: MORPHINE SULFATE 2 MG/ML VIAL. IV PRN (13:15)
[2018-11-26] MEDS ORDERED: fentaNYL PF VIAL 100 MCG/2 ML VIAL IV ONE (13:15)
[2018-11-26] MEDS ORDERED: LIDOCAINE 1% PF 2 ML VIAL. ID PRN (13:15)
[2018-11-26] MEDS ORDERED: HYDROmorphone 2 MG/ML VIAL IV PRN ×2 (13:15→15:00)
[2018-11-26] MEDS ORDERED: fentaNYL PF VIAL 100 MCG/2 ML VIAL IV PRN (13:15)
[2018-11-26] MEDS ORDERED: ROCURONIUM 50 MG/5 ML VIAL. ONE (13:22)
[2018-11-26] MEDS ORDERED: SUCCINYLCHOLINE 200 MG/10 ML VIAL. ONE (13:22)
[2018-11-26] MEDS ORDERED: DEXAMETHASONE SOD PHOS 4 MG/ML VIAL ONE (13:22)
[2018-11-26] MEDS ORDERED: LIDOCAINE 2% PF 5 ML VIAL. ONE (13:22)
[2018-11-26] MEDS ORDERED: PROPOFOL 20 ML IV ONE (13:22)
[2018-11-26] MEDS ORDERED: MIDAZOLAM HCL/PF 2 MG/2 ML VIAL. ONE (13:22)
[2018-11-26] MEDS ORDERED: ONDANSETRON PF 4 MG/2 ML VIAL. ONE (13:22)
[2018-11-26] MEDS ORDERED: GLYCOPYRROLATE 1 MG/5 ML VIAL. ONE (13:54)
[2018-11-26] MEDS ORDERED: PHENYLEPHRINE in 0.9% NACL PF 1 MG/10 ML SYRINGE. IV ONE (14:17)
[2018-11-26] MEDS ORDERED: NEOSTIGMINE METHYLSULFATE 5 MG/5 ML SYRINGE. ONE (14:17)
[2018-11-26] MEDS ORDERED: SEVOFLURANE 61 TO 120 MINUTES. IH ONE (14:32)
[2018-11-26] MEDS: IV NORMAL SALINE 1000ML BAG 1,000 ML IV SCH (14:47)
[2018-11-26] MEDS ORDERED: DEXTROSE 50% 25 GM / 50ML DISP.SYRIN. IV PRN (15:00)
[2018-11-26] MEDS ORDERED: 0.9 % SODIUM CHLORIDE 10 ML DISP.SYRIN. IV PRN (15:00)
[2018-11-26] MEDS ORDERED: NALOXONE 0.4 MG/ML VIAL. IV PRN (15:00)
[2018-11-26] MEDS ORDERED: ENOXAPARIN 40 MG/0.4 ML SYRINGE. SQ SCH (15:00)
[2018-11-26] MEDS ORDERED: oxyCODONE/APAP 5/325 1 TAB TABLET PO PRN (15:00)
--- NOTE | 2018-11-26 15:12 | PDOC ---
BRIEF OPERATIVE NOTE Date: Nov 26, 2018 Pre-Op Diagnosis acute appendicitis with abscess Post-Op Diagnosis same Procedure Performed l/s appendectomy Surgeon Bradley Anesthesia Type: General Blood Loss 10cc IV Fluid 1100cc Urine Output 150cc Specimens Obtained appendix Findings perforated near the base with abscess and generalized peritonitis Complications none Operative Note Wk # [id number] NIYA MOLINA MD Nov 26, 2018 15:12
[2018-11-26] MEDS: fentaNYL PF VIAL 100 MCG/2 ML VIAL IV PRN ×2 (15:27→15:58)
--- NOTE | 2018-11-26 15:57 | OP ---
DATE OF SURGERY: 11/26/2018 PREOPERATIVE DIAGNOSIS: Acute appendicitis with abscess. POSTOPERATIVE DIAGNOSIS: Acute appendicitis with abscess with generalized peritonitis. PROCEDURE: Laparoscopic appendectomy. SURGEON: Olayinka Molina MD ANESTHESIA: General endotracheal. ESTIMATED BLOOD LOSS: 10 mL. INTRAVENOUS FLUIDS: 1100 hours. URINE OUTPUT: 150 mL. DESCRIPTION OF PROCEDURE: The patient brought to the operating suite, given a general endotracheal anesthetic and a Raphael catheter placed to dependent drainage. Abdomen prepped and draped in usual sterile fashion. Supraumbilical incision was infiltrated with local anesthetic, incised and a 5 mm Visiport used to safely gain access into the abdominal cavity, taking care to avoid injury to abdominal contents. Pneumoperitoneum established. Camera inserted and under direct vision, the suprapubic and left lower quadrant ports were placed. The supraumbilical port was converted to 12 mm for instrumentation. With the table in Trendelenburg rolled to the left, the appendix was freed from lateral attachments with careful blunt and cautery dissection using the LigaSure. The base of the appendix was identified and a rent created between the base of the appendix and the mesoappendix and the Endo-MICHAELA stapler was passed first for the tissue load to amputate the appendiceal stump above the perforation. The mesoappendix with a vascular load appendix placed in an EndoCatch bag. Pressure decreased to 6 cm of water. No bleeding from the appendiceal stump or the mesoappendix was seen. Table returned to level. Appendix delivered through the supraumbilical port, which was then closed with 0 Vicryl. Prior to closure of the umbilical port, a 19-Yoruba round Robert drain was brought under direct vision through a right-sided stab wound and left in the true pelvis for postoperative drainage. Skin incisions closed with victor m after delivery of the appendix and closure of the port site. Left lower quadrant port site removed, no bleeding seen. Abdomen decompressed. Cam removed, no bleeding seen. Skin incisions closed with victor m. Sterile dressings applied. Raphael catheter removed. The patient was awakened from his anesthetic and taken to the recovery room in satisfactory condition. OLAYINKA MOLINA MD DR: MALU/gary JOB#: [id number] / [id number]
[2018-11-26] MEDS: oxyCODONE/APAP 5/325 1 TAB TABLET PO PRN ×2 (17:18→21:21)
[2018-11-26] MEDS: POTASSIUM CL 20MEQ-0.45% NACL 1,000 ML IV SCH ×2 (17:22→21:19)
[2018-11-26] MEDS: PIPERACILLIN/TAZOBACTAM 3.375 GM in IV NORMAL SALINE 50ML 50 ML IV SCH (17:32)
[2018-11-26] MEDS: DOCUSATE SODIUM 100 MG CAPSULE. PO SCH (21:16)
[2018-11-27] MEDS: PIPERACILLIN/TAZOBACTAM 3.375 GM in IV NORMAL SALINE 50ML 50 ML IV SCH ×4 (00:48→17:24)
[2018-11-27] MEDS: NICOTINE 21MG PATCH. TD SCH ×2 (02:22→08:54)
[2018-11-27 03:00] VITALS: BP 109/49
[2018-11-27] MEDS: oxyCODONE/APAP 5/325 1 TAB TABLET PO PRN ×3 (03:08→17:27)
[2018-11-27] MEDS ORDERED: ENOXAPARIN 40 MG/0.4 ML SYRINGE. SQ SCH (06:00)
[2018-11-27 07:00] VITALS: BP 120/62
--- NOTE | 2018-11-27 08:00 | NUR ---
ambulated to the bathroom frequently. rating his pain an 8. medicated with Percocet. abdomen is slightly distended but soft. states he is passing gas infrequently
[2018-11-27] MEDS: DOCUSATE SODIUM 100 MG CAPSULE. PO SCH ×2 (08:51→22:04)
[2018-11-27] MEDS: ENOXAPARIN 40 MG/0.4 ML SYRINGE. SQ SCH (08:57)
--- NOTE | 2018-11-27 10:19 | PDOC ---
ONEIL SINGLETARY BREAST TRIMMER 11/27/18 1019: SURGICAL PROGRESS NOTE Subjective feels better pain to incisions sites Vital Signs Vital Signs Date Time Temp Pulse Resp B/P (MAP) Pulse Ox O2 Delivery O2 Flow Rate FiO2 11/27/18 08:51 20 11/27/18 07:31 Room Air 11/27/18 07:00 98.5 54 120/62 (81) 96 98.5 I&O Intake and Output 11/27/18 06:59 Intake Total 6010 ml Output Total 1110 ml Balance 4900 ml Intake Oral 580 ml IV Total 5430 ml Output Urine Total 950 ml Drainage Total 150 ml Estimated Blood Loss 10 ml # Voids 3 General: Alert, Oriented X3, Cooperative, No acute distress Abdomen: Soft, Other (ND, lap dressings dry, drain seropurulent ) Labs Laboratory Tests Test 11/26/18 10:15 11/26/18 11:56 White Blood Count 11.4 x10^3/uL (4.0-11.0) Red Blood Count 4.93 x10^6/uL (4.30-5.70) Hemoglobin 15.7 g/dL (13.0-17.5) Hematocrit 45.4 % (39.0-53.0) Mean Corpuscular Volume 92 fL (79-100) Mean Corpuscular Hemoglobin 32 pg (25-35) Mean Corpuscular Hemoglobin Concent 35 g/dL (31-37) Red Cell Distribution Width 12.7 % (11.5-14.5) Platelet Count 161 x10^3/uL (140-400) Neutrophils (%) (Auto) 86 % (31-73) Lymphocytes (%) (Auto) 9 % (24-48) Monocytes (%) (Auto) 4 % (0-9) Eosinophils (%) (Auto) 0 % (0-3) Basophils (%) (Auto) 0 % (0-3) Neutrophils # (Auto) 9.8 x10^3/uL (1.8-7.7) Lymphocytes # (Auto) 1.0 x10^3/uL (1.0-4.8) Monocytes # (Auto) 0.5 x10^3/uL (0.0-1.1) Eosinophils # (Auto) 0.0 x10^3/uL (0.0-0.7) Basophils # (Auto) 0.0 x10^3/uL (0.0-0.2) Segmented Neutrophils % 55 % (35-66) Band Neutrophils % 29 % (0-9) Lymphocytes % 9 % (24-48) Monocytes % 4 % (0-10) Metamyelocytes % 3 % (0-0) Platelet Estimate Adequate (ADEQUATE) Anisocytosis Slight Sodium Level 141 mmol/L (136-145) Potassium Level 3.7 mmol/L (3.5-5.1) Chloride Level 103 mmol/L (98-107) Carbon Dioxide Level 29 mmol/L (21-32) Anion Gap 9 (6-14) Blood Urea Nitrogen 12 mg/dL (8-26) Creatinine 1.2 mg/dL (0.7-1.3) Estimated GFR (Cockcroft-Gault) 73.2 BUN/Creatinine Ratio 10 (6-20) Glucose Level 189 mg/dL (70-99) Calcium Level 9.2 mg/dL (8.5-10.1) Total Bilirubin 0.6 mg/dL (0.2-1.0) Aspartate Amino Transf (AST/SGOT) 15 U/L (15-37) Alanine Aminotransferase (ALT/SGPT) 14 U/L (16-63) Alkaline Phosphatase 49 U/L (46-116) Total Protein 7.5 g/dL (6.4-8.2) Albumin 4.3 g/dL (3.4-5.0) Albumin/Globulin Ratio 1.3 (1.0-1.7) Lipase 210 U/L (73-393) Urine Collection Type Unknown Urine Color Yellow Urine Clarity Cloudy Urine pH 6.0 Urine Specific [place] >=1.030 Urine Protein Negative mg/dL (NEG-TRACE) Urine Glucose (UA) Negative mg/dL (NEG) Urine Ketones (Stick) Negative mg/dL (NEG) Urine Blood Negative (NEG) Urine Nitrite Negative (NEG) Urine Bilirubin Negative (NEG) Urine Urobilinogen Dipstick 0.2 mg/dL (0.2 mg/dL) Urine Leukocyte Esterase Negative (NEG) Urine RBC 1-2 /HPF (0-2) Urine WBC 1-4 /HPF (0-4) Urine Squamous Epithelial Cells Occ /LPF Urine Bacteria Few /HPF (0-FEW) Urine Mucus Marked /LPF Laboratory Tests Test 11/26/18 11:56 Urine Collection Type Unknown Urine Color Yellow Urine Clarity Cloudy Urine pH 6.0 Urine Specific [place] >=1.030 Urine Protein Negative mg/dL (NEG-TRACE) Urine Glucose (UA) Negative mg/dL (NEG) Urine Ketones (Stick) Negative mg/dL (NEG) Urine Blood Negative (NEG) Urine Nitrite Negative (NEG) Urine Bilirubin Negative (NEG) Urine Urobilinogen Dipstick 0.2 mg/dL (0.2 mg/dL) Urine Leukocyte Esterase Negative (NEG) Urine RBC 1-2 /HPF (0-2) Urine WBC 1-4 /HPF (0-4) Urine Squamous Epithelial Cells Occ /LPF Urine Bacteria Few /HPF (0-FEW) Urine Mucus Marked /LPF Problem List Problems Medical Problems: (1) Acute appendicitis with appendiceal abscess Status: Acute Assessment/Plan s/p appy, perf continue abx NIYA MOLINA MD 11/27/18 1123: SURGICAL PROGRESS NOTE Assessment/Plan pt seen just got back from the bathroom where he was able to void was shaking but has stopped no new recs continue supportive care ONEIL SINGLETARY BREAST TRIMMER Nov 27, 2018 10:19 NIYA MOLINA MD Nov 27, 2018 11:23
[2018-11-27 11:00] VITALS: BP 108/70
[2018-11-27] MEDS: POTASSIUM CL 20MEQ-0.45% NACL 1,000 ML IV SCH ×2 (12:08→22:09)
[2018-11-27] MEDS: IV NORMAL SALINE 1000ML BAG 1,000 ML IV SCH (14:47)
[2018-11-27 15:00] VITALS: BP 112/49
--- NOTE | 2018-11-27 15:19 | NUR ---
SS following for discharge planning. SS reviewed pt chart. Pt is self pay pt. HCFS following for self pay status. Pt is from home and is currently on room air. SS will continue to follow for discharge planning.
--- NOTE | 2018-11-27 18:27 | NUR ---
Titus is doing well. he is voiding without problems. ambulates frequently in the room. pain is controlled with oral medications. sherine drain was emptied by patient ; emptied 70cc so far.
[2018-11-27 19:40] VITALS: BP 106/47
[2018-11-27] MEDS: LACTOBACILLUS RHAMNOSUS GG 1 CAPSULE. PO SCH (22:04)
[2018-11-27 23:51] VITALS: BP 120/65
[2018-11-28] MEDS: PIPERACILLIN/TAZOBACTAM 3.375 GM in IV NORMAL SALINE 50ML 50 ML IV SCH ×2 (00:05→05:11)
[2018-11-28 03:14] VITALS: BP 108/48
[2018-11-28 04:53] LABS: BASO % 0 % (0-3); EOS # 0.1 x10^3/uL (0.0-0.7); EOS % 1 % (0-3); HEMOGLOBIN 12.9 g/dL (13.0-17.5); LYMPH # 1.4 x10^3/uL (1.0-4.8); LYMPH % 18 % (24-48); MEAN CORPUSCULAR HEMOGLOBIN 33 pg (25-35); MEAN CORPUSCULAR HGB CONC 35 g/dL (31-37); MEAN CORPUSCULAR VOLUME 94 fL (79-100); MONO # 0.5 x10^3/uL (0.0-1.1); MONO % 6 % (0-9); NEUT # 5.7 x10^3/uL (1.8-7.7); NEUT % 75 % (31-73); PLATELET COUNT 120 x10^3/uL (140-400); RED BLOOD COUNT 3.95 x10^6/uL (4.30-5.70); RED CELL DISTRIBUTION WIDTH 12.8 % (11.5-14.5); WHITE BLOOD COUNT 7.6 x10^3/uL (4.0-11.0)
[2018-11-28 07:00] VITALS: BP 127/85
[2018-11-28] MEDS: LACTOBACILLUS RHAMNOSUS GG 1 CAPSULE. PO SCH (08:16)
[2018-11-28] MEDS: DOCUSATE SODIUM 100 MG CAPSULE. PO SCH (08:16)
[2018-11-28] MEDS: ENOXAPARIN 40 MG/0.4 ML SYRINGE. SQ SCH (08:17)
[2018-11-28] MEDS: NICOTINE 21MG PATCH. TD SCH (08:17)
--- NOTE | 2018-11-28 08:24 | PDOC ---
ONEIL SINGLETARY STAFF FORESTER 11/28/18 0824: SURGICAL PROGRESS NOTE Subjective tolerating diet ambulating pain managed + flatus, no stool Vital Signs Vital Signs Date Time Temp Pulse Resp B/P (MAP) Pulse Ox O2 Delivery O2 Flow Rate FiO2 11/28/18 07:00 98.6 66 18 127/85 (99) 98 Room Air 98.6 I&O Intake and Output 11/28/18 07:00 Intake Total 700 ml Output Total 65 ml Balance 635 ml Intake Oral 700 ml Drainage Total 65 ml # Voids 10 General: Alert, Oriented X3, Cooperative, No acute distress Abdomen: Soft, Other (lap dressings dry, drain more serous ) Labs Laboratory Tests Test 11/26/18 10:15 11/26/18 11:56 11/28/18 04:05 White Blood Count 11.4 x10^3/uL (4.0-11.0) 7.6 x10^3/uL (4.0-11.0) Red Blood Count 4.93 x10^6/uL (4.30-5.70) 3.95 x10^6/uL (4.30-5.70) Hemoglobin 15.7 g/dL (13.0-17.5) 12.9 g/dL (13.0-17.5) Hematocrit 45.4 % (39.0-53.0) 37.0 % (39.0-53.0) Mean Corpuscular Volume 92 fL (79-100) 94 fL (79-100) Mean Corpuscular Hemoglobin 32 pg (25-35) 33 pg (25-35) Mean Corpuscular Hemoglobin Concent 35 g/dL (31-37) 35 g/dL (31-37) Red Cell Distribution Width 12.7 % (11.5-14.5) 12.8 % (11.5-14.5) Platelet Count 161 x10^3/uL (140-400) 120 x10^3/uL (140-400) Neutrophils (%) (Auto) 86 % (31-73) 75 % (31-73) Lymphocytes (%) (Auto) 9 % (24-48) 18 % (24-48) Monocytes (%) (Auto) 4 % (0-9) 6 % (0-9) Eosinophils (%) (Auto) 0 % (0-3) 1 % (0-3) Basophils (%) (Auto) 0 % (0-3) 0 % (0-3) Neutrophils # (Auto) 9.8 x10^3/uL (1.8-7.7) 5.7 x10^3/uL (1.8-7.7) Lymphocytes # (Auto) 1.0 x10^3/uL (1.0-4.8) 1.4 x10^3/uL (1.0-4.8) Monocytes # (Auto) 0.5 x10^3/uL (0.0-1.1) 0.5 x10^3/uL (0.0-1.1) Eosinophils # (Auto) 0.0 x10^3/uL (0.0-0.7) 0.1 x10^3/uL (0.0-0.7) Basophils # (Auto) 0.0 x10^3/uL (0.0-0.2) 0.0 x10^3/uL (0.0-0.2) Segmented Neutrophils % 55 % (35-66) Band Neutrophils % 29 % (0-9) Lymphocytes % 9 % (24-48) Monocytes % 4 % (0-10) Metamyelocytes % 3 % (0-0) Platelet Estimate Adequate (ADEQUATE) Anisocytosis Slight Sodium Level 141 mmol/L (136-145) Potassium Level 3.7 mmol/L (3.5-5.1) Chloride Level 103 mmol/L (98-107) Carbon Dioxide Level 29 mmol/L (21-32) Anion Gap 9 (6-14) Blood Urea Nitrogen 12 mg/dL (8-26) Creatinine 1.2 mg/dL (0.7-1.3) Estimated GFR (Cockcroft-Gault) 73.2 BUN/Creatinine Ratio 10 (6-20) Glucose Level 189 mg/dL (70-99) Calcium Level 9.2 mg/dL (8.5-10.1) Total Bilirubin 0.6 mg/dL (0.2-1.0) Aspartate Amino Transf (AST/SGOT) 15 U/L (15-37) Alanine Aminotransferase (ALT/SGPT) 14 U/L (16-63) Alkaline Phosphatase 49 U/L (46-116) Total Protein 7.5 g/dL (6.4-8.2) Albumin 4.3 g/dL (3.4-5.0) Albumin/Globulin Ratio 1.3 (1.0-1.7) Lipase 210 U/L (73-393) Urine Collection Type Unknown Urine Color Yellow Urine Clarity Cloudy Urine pH 6.0 Urine Specific [place] >=1.030 Urine Protein Negative mg/dL (NEG-TRACE) Urine Glucose (UA) Negative mg/dL (NEG) Urine Ketones (Stick) Negative mg/dL (NEG) Urine Blood Negative (NEG) Urine Nitrite Negative (NEG) Urine Bilirubin Negative (NEG) Urine Urobilinogen Dipstick 0.2 mg/dL (0.2 mg/dL) Urine Leukocyte Esterase Negative (NEG) Urine RBC 1-2 /HPF (0-2) Urine WBC 1-4 /HPF (0-4) Urine Squamous Epithelial Cells Occ /LPF Urine Bacteria Few /HPF (0-FEW) Urine Mucus Marked /LPF Laboratory Tests Test 11/28/18 04:05 White Blood Count 7.6 x10^3/uL (4.0-11.0) Red Blood Count 3.95 x10^6/uL (4.30-5.70) Hemoglobin 12.9 g/dL (13.0-17.5) Hematocrit 37.0 % (39.0-53.0) Mean Corpuscular Volume 94 fL (79-100) Mean Corpuscular Hemoglobin 33 pg (25-35) Mean Corpuscular Hemoglobin Concent 35 g/dL (31-37) Red Cell Distribution Width 12.8 % (11.5-14.5) Platelet Count 120 x10^3/uL (140-400) Neutrophils (%) (Auto) 75 % (31-73) Lymphocytes (%) (Auto) 18 % (24-48) Monocytes (%) (Auto) 6 % (0-9) Eosinophils (%) (Auto) 1 % (0-3) Basophils (%) (Auto) 0 % (0-3) Neutrophils # (Auto) 5.7 x10^3/uL (1.8-7.7) Lymphocytes # (Auto) 1.4 x10^3/uL (1.0-4.8) Monocytes # (Auto) 0.5 x10^3/uL (0.0-1.1) Eosinophils # (Auto) 0.1 x10^3/uL (0.0-0.7) Basophils # (Auto) 0.0 x10^3/uL (0.0-0.2) Problem List Problems Medical Problems: (1) Acute appendicitis with appendiceal abscess Status: Acute Assessment/Plan s/p perf appy possible dc today with oral abx, drain NIYA MOLINA MD 11/28/18 1211: SURGICAL PROGRESS NOTE Assessment/Plan as above home today with drain f/u Saturday ONEIL SINGLETARY STAFF FORESTER Nov 28, 2018 08:24 NIYA MOLINA MD Nov 28, 2018 12:11
[2018-11-28] MEDS ORDERED: DOCU-109 PO (08:49)
[2018-11-28] MEDS ORDERED: AMOX1TAB61 PO (08:49)
[2018-11-28] MEDS ORDERED: OXYC1TAB15 PO (08:49)
--- NOTE | 2018-11-28 08:52 | DISCH ---
DISCHARGE INSTRUCTIONS Condition on Discharge Condition on Discharge: Stable Activity After Discharge Activity Instructions for Disc: Activity as tolerated Other activity instructions: can shower with drain covered Lifting Instructions after Dis: No heavy lifting (20 lbs) Driving Instructions after Dis: Do not drive Diet after Discharge Diet after Discharge: Regular Wound Incision Care Wound/Incision Care: Other, see below (can leave incisions uncovered, drain care as instructed ) Contacting the after DC Call your doctor for: Concerns you may have Follow-Up Follow up with: Dr Huerta 12/01 at 215pm, call for questions [phone] ONEIL SINGLETARY APRN Nov 28, 2018 08:52
--- NOTE | 2018-11-28 12:12 | PDOC3 ---
Discharge Summary Visit Information Date of Admission: Nov 26, 2018 Date of Discharge: Nov 28, 2018 Admitting Diagnosis Comment: perforated appendicitis with abscess Final Diagnosis Problems Medical Problems: (1) Acute appendicitis with appendiceal abscess Status: Acute Brief Hospital Course Allergies Allergies Coded Allergies Type Severity Reaction Last Updated Verified No Known Drug Allergies 09/26/15 No Vital Signs Vital Signs Date Time Temp Pulse Resp B/P (MAP) Pulse Ox O2 Delivery O2 Flow Rate FiO2 11/28/18 07:00 98.6 66 18 127/85 (99) 98 Room Air 98.6 Lab Results Laboratory Tests Test 11/28/18 04:05 White Blood Count 7.6 x10^3/uL (4.0-11.0) Red Blood Count 3.95 x10^6/uL (4.30-5.70) Hemoglobin 12.9 g/dL (13.0-17.5) Hematocrit 37.0 % (39.0-53.0) Mean Corpuscular Volume 94 fL (79-100) Mean Corpuscular Hemoglobin 33 pg (25-35) Mean Corpuscular Hemoglobin Concent 35 g/dL (31-37) Red Cell Distribution Width 12.8 % (11.5-14.5) Platelet Count 120 x10^3/uL (140-400) Neutrophils (%) (Auto) 75 % (31-73) Lymphocytes (%) (Auto) 18 % (24-48) Monocytes (%) (Auto) 6 % (0-9) Eosinophils (%) (Auto) 1 % (0-3) Basophils (%) (Auto) 0 % (0-3) Neutrophils # (Auto) 5.7 x10^3/uL (1.8-7.7) Lymphocytes # (Auto) 1.4 x10^3/uL (1.0-4.8) Monocytes # (Auto) 0.5 x10^3/uL (0.0-1.1) Eosinophils # (Auto) 0.1 x10^3/uL (0.0-0.7) Basophils # (Auto) 0.0 x10^3/uL (0.0-0.2) Laboratory Tests Test 11/28/18 04:05 White Blood Count 7.6 x10^3/uL (4.0-11.0) Red Blood Count 3.95 x10^6/uL (4.30-5.70) Hemoglobin 12.9 g/dL (13.0-17.5) Hematocrit 37.0 % (39.0-53.0) Mean Corpuscular Volume 94 fL (79-100) Mean Corpuscular Hemoglobin 33 pg (25-35) Mean Corpuscular Hemoglobin Concent 35 g/dL (31-37) Red Cell Distribution Width 12.8 % (11.5-14.5) Platelet Count 120 x10^3/uL (140-400) Neutrophils (%) (Auto) 75 % (31-73) Lymphocytes (%) (Auto) 18 % (24-48) Monocytes (%) (Auto) 6 % (0-9) Eosinophils (%) (Auto) 1 % (0-3) Basophils (%) (Auto) 0 % (0-3) Neutrophils # (Auto) 5.7 x10^3/uL (1.8-7.7) Lymphocytes # (Auto) 1.4 x10^3/uL (1.0-4.8) Monocytes # (Auto) 0.5 x10^3/uL (0.0-1.1) Eosinophils # (Auto) 0.1 x10^3/uL (0.0-0.7) Basophils # (Auto) 0.0 x10^3/uL (0.0-0.2) Brief Hospital Course Mr. Sinclair is a 28 old male who presented with RLQ pain and CT consistent with an acute appendicitis with rupture and abscess Discharge Information Condition at Discharge: Improved Follow Up: As Needed Disposition/Orders: D/C to Home Scheduled Amoxicillin/Potassium Clav (Augmentin 875-125 Tablet) 1 Each Tablet, 1 TAB PO BID for infection, #20 Prescribed by: Halie Shaffer on 11/28/18 0849 Diclofenac Sodium (Diclofenac Sodium) 50 Mg Tablet.dr, 1 TAB PO BID, #20 Ref 0 Prescribed by: Deandra Mcclure APRN on 08/04/182051 Docusate Sodium (Colace) 100 Mg Capsule, 100 MG PO BID for constipation, #60 Prescribed by: Halie Shaffer on 11/28/18 0849 Gabapentin (Gabapentin ) 300 Mg Capsule, 300 MG PO TID for NEUROGENIC PAIN, #30 Prescribed by: Deandra Mcclure APRN on 11/26/183 Naproxen (Naproxen) 500 Mg Tablet, 1 TAB PO BID, #20 Prescribed by: Deandra Mcclure APRN on 11/26/183 Scheduled PRN Oxycodone/Apap 5-325 (Percocet 5-325 Mg Tablet ) 1 Each Tablet, 1 TAB PO PRN Q4HRS PRN for MILD PAIN, 1ST CHOICE, #30 Ref 0 Prescribed by: Halie Shaffer on 11/28/18 0849 Discontinued Medications Penicillin V Potassium (Penicillin V Potassium) 500 Mg Tablet, 2 TAB PO BID for 7 Days, #28 Prescribed by: KIMBERLEE RUST APRN on 08/09/17 1750 Penicillin V Potassium (Penicillin V Potassium) 500 Mg Tablet, 1 TAB PO BID, #20 Prescribed by: Deandra Mcclure APRN on 08/04/182051 Penicillin V Potassium (Penicillin V Potassium) 500 Mg Tablet, 1 TAB PO BID, #20 Prescribed by: Deandra Mcclure APRN on 11/26/18 0004 NIYA MOLINA MD Nov 28, 2018 12:12
--- NOTE | 2018-11-28 14:07 | PATHOLOGY ---
[facility] Accession Number: [id number] . 01 Material submitted: . appendix - APPENDIX . 01 Clinical history: . Abdominal pain . 02 Diagnosis: Appendix, appendectomy: - Acute appendicitis and periappendicitis. ([facility]; 11/28/2018) [facility] 11/28/2018 1236 Local . 02 Electronically signed: . Anthony Ureañ MD, Pathologist NPI- [id number] . 01 Gross description: . The specimen is received in formalin, labeled "Titus Sinclair, appendix". Received is a vermiform appendix measuring 6.3 cm in length by up to 1.2 cm in diameter with a moderate amount of attached mesoappendix. The serosal surface is pink-gonzalez and shaggy in appearance. The surgical margin is closed with a line of victor m. The victor m are removed the new margin is inked black. Sectioning reveals a patent lumen, and also displays pronounced mucosa. The specimen is submitted representatively A1 and A2, with the proximal margin and bisected tip submitted in cassette A1. ([facility]; 11/27/2018) [facility]AC/QA 11/28/2018 1235 Local . 02 Pathologist provided ICD-10: K35.80 . 02 CPT . 052618 Specimen Comment: A courtesy copy of this report has been sent to Specimen Comment: [phone]. Specimen Comment: Report sent to Performed at: 01 [facility] [address], [place] [id number] MD Brad Lux MD Phone: [phone] Performed at: 02 [facility] [address] [place], [place] [id number] MD Elgin Parks MD Phone: [phone]
== END 2018-11-28 10:10 | disposition home or self-care (01) | DRG 339 ==
LOC: ER 09:44 → 4 NORTH 12:13 → OBSVTOIN 12:13 → ER 12:57
PROVIDERS: ADMIT Surgery; ATTEND Surgery
PROC: 0DTJ4ZZ Resection of Appendix, Percutaneous Endoscopic Approach (ICD-10-PCS; principal; 2018-11-26 13:30)
DX: K35.21 Acute appendicitis with generalized peritonitis, with abscess (principal); R18.8 Other ascites; K08.89 Other specified disorders of teeth and supporting structures; F17.210 Nicotine dependence, cigarettes, uncomplicated
CPT/HCPCS: 36415; 74177; 80053; 81001; 83690; 85007; 85025; 88304; A7015; J0330; J0696; J1100; J1650; J2001; J2250; J2270; J2370; J2405; J2543; J2704; J2710; J3010; J3490; J7030; J7120; Q9966; Q9967; G0378

== ENCOUNTER 2019-08-24 15:03 | Emergency (ER) | payer SELFPAY ==
[~2019-08-24] VITALS: Ht 180.3 cm; Wt 76.3 kg
[~2019-08-24 15:03] MED LIST changes: +AMOX1TAB61 PO; +DOCU-109 PO; +OXYC1TAB15 PO
[2019-08-24 15:07] VITALS: BP 131/84
--- NOTE | 2019-08-24 15:40 | PHYS DOC ---
Past Medical History Past Medical History: No Pertinent History, Asthma Additional Past Medical Histor: pinched nerve, oral infection (JAVIER DARDEN APRN) Past Surgical History: No Surgical History (JAVIER DARDEN APRN) Smoking Status: Current Every Day Smoker Alcohol Use: Occasionally Drug Use: Marijuana (JAVIER DARDEN APRN) General Adult EDM: Chief Complaint: SORE THROAT HPI: HPI: Patient is a 29 year old male who presents with 5-day history of sore throat without cough. Rates his pain a 3 to a 4 when swallowing, this pain does not radiate. Denies fever or chills. Took Tylenol 2 days ago with minimal pain relief. Has not taken anything for the pain or discomfort since 2 days ago. Reports cough is dry without production of sputum. Patient denies shortness of breath. Patient denies anybody else living in his home with the same symptoms. (JAVIER DARDEN APRN) Review of Systems: Review of Systems: Constitutional: Denies fever or chills. [] Eyes: Denies change in visual acuity. [] HENT: Denies nasal congestion. Complains of a sore throat rates 3-4 out of 10 for the past 4 to 5 days. Respiratory: Denies cough or shortness of breath. [] Cardiovascular: Denies chest pain or edema. [] Integument: Denies rash. [] Neurologic: Denies headache, focal weakness or sensory changes. [] Lymphatic: Denies swollen glands. [] (JAVIER DARDEN APRN) Heart Score: Risk Factors: Risk Factors: DM, Current or recent (<one month) smoker, HTN, HLP, family history of CAD, obesity. Risk Scores: Score 0 - 3: 2.5% MACE over next 6 weeks - Discharge Home Score 4 - 6: 20.3% MACE over next 6 weeks - Admit for Clinical Observation Score 7 - 10: 72.7% MACE over next 6 weeks - Early Invasive Strategies (JAVIER DARDEN APRN) Family History: Family History: No significant family history related to chief complaint (JAVIER DARDEN APRN) Current Medications: Patient denies current prescription medications. (JAVIER DARDEN APRN) Allergies: Allergies: Allergies Coded Allergies Type Severity Reaction Last Updated Verified No Known Drug Allergies 09/26/15 No (JAVIER DARDEN APRN) Physical Exam: PE: Constitutional: Well developed, well nourished, no acute distress, non-toxic appearance. [] HENT: Normocephalic, atraumatic, bilateral external ears normal, oropharynx moist, no oral exudates, nose normal. [Oropharynx erythematous with mild tonsi llar swelling without exudate, no postnasal drip] Eyes: PERRLA, EOMI, conjunctiva normal, no discharge. [] Neck: Normal range of motion, no tenderness, supple, no stridor. [] Cardiovascular:Heart rate regular rhythm, no murmur [] Lungs & Thorax: Bilateral breath sounds clear to auscultation [] Abdomen: Bowel sounds normal, soft, no tenderness, no masses, no pulsatile masses. [] Skin: Warm, dry, no erythema, no rash (JAVIER DARDEN APRN) Current Patient Data: Labs: Rapid strep a negative (JAVIER DARDEN APRN) EKG: EKG: [] (JAVIER DARDEN APRN) Radiology/Procedures: Radiology/Procedures: [] (JAVIER DARDEN APRN) Course & Med Decision Making: Course & Med Decision Making Pertinent Labs and Imaging studies reviewed. (See chart for details) 29-year-old male presents to the emergency department with complaints of a sore throat for the past 4 to 5 days he rates his pain at a 3-4 over 10 without radiation of this pain. Patient states he took Tylenol 2 days ago with minimal relief and has not taken anything for his pain since. Patient denies headache shortness of breath ear pain rashes or fever. Upon examination oropharynx erythematous tonsils slightly edematous with no drainage with no postnasal drip. Examination shows low likelihood for strep infection including rapid strep a was negative in the ED and Cent[facility] criteria grade of 1. Plan to discharge patient home with instructions to use [id number] ibuprofen and and Chloraseptic throat spray for pain discussed with patient this is likely viral and does not need antibiotic. Patient does smoke cigarettes about a pack to a pack and a half a day. Counseled patient for need to stop smoking. Patient agrees with plan has no further questions given instructions to return to ER if symptoms worsen. (JAVIER DARDEN APRN) Samanthaon Disclaimer: Dragashly Disclaimer: This electronic medical record was generated, in whole or in part, using a voice recognition dictation system. (JAVIER DARDEN APRN) Departure Departure Impression: Primary Impression: Pharyngitis Qualified Codes: J02.9 - Acute pharyngitis, unspecified Disposition: HOME, SELF-CARE Condition: GOOD Referrals: NO PCP (PCP) Patient Instructions: Sore Throat Additional Instructions: take over the counter ibuprofen and [id number] Chloraseptic spray for sore throat return to the emergency department if symptoms worsen follow-up with your primary doctor soon Justicifation of Admission Dx: Justifications for Admission: Justification of Admission Dx: N/A (JAVIER DARDEN APRN) Attending Signature Attending Signature I have participated in the care of this patient and I have reviewed and agree with all pertinent clinical information above including history, exam, and recommendations. (KELLEY SUNSHINE DO) JAVIER DARDEN APRN Aug 24, 2019 15:40 KELLEY SUNSHINE DO Aug 24, 2019 16:11
== END 2019-08-24 16:02 | disposition home or self-care (01) ==
LOC: ER 15:03
DX: J02.9 Acute pharyngitis, unspecified (principal); R05 Cough; L53.9 Erythematous condition, unspecified; J45.909 Unspecified asthma, uncomplicated; F17.200 Nicotine dependence, unspecified, uncomplicated; F12.90 Cannabis use, unspecified, uncomplicated
CPT/HCPCS: 87070; 87880; 99283

== ENCOUNTER 2019-09-01 16:13 | Emergency (ER) | payer SELFPAY ==
[~2019-09-01] VITALS: Ht 180.3 cm; Wt 80.0 kg
--- NOTE | 2019-09-01 17:09 | PHYS DOC ---
Past Medical History Past Medical History: No Pertinent History, Asthma Additional Past Medical Histor: pinched nerve, oral infection (JOCELYN PARRA MANAGER [employer]) Past Surgical History: No Surgical History (JOCELYN PARRA [employer]GER [employer]) Smoking Status: Current Every Day Smoker Alcohol Use: Occasionally Drug Use: Marijuana (JOCELYN PARRA [employer]) General Adult EDM: Chief Complaint: RECTAL BLEED HPI: HPI: Patient is a 29 year old MALE who presents with prior to arrival he had a soft bowel movement and he saw a small clot looking object. He is here today to be checked for GI bleed. He denies abdominal pain, nausea, vomiting, diarrhea, constipation, hemorrhoids, fever, headache, dizziness, numbness or tingling, chest pain, shortness of air. He states his only past medical history is asthma and he has had his appendix removed. He denies any dysuria symptoms. (JOCELYN PARRA MA[employer]GER [employer]) Review of Systems: Review of Systems: Constitutional: Denies fever or chills. [] Eyes: Denies change in visual acuity. [] HENT: Denies nasal congestion or sore throat. [] Respiratory: Denies cough or shortness of breath. [] Cardiovascular: Denies chest pain or edema. [] GI: Denies abdominal pain, nausea, vomiting. + bloody stools or denies diarrhea. [] : Denies dysuria. [] Musculoskeletal: Denies back pain or joint pain. [] Integument: Denies rash. [] Neurologic: Denies headache, focal weakness or sensory changes. [] Endocrine: Denies polyuria or polydipsia. [] Lymphatic: Denies swollen glands. [] Psychiatric: Denies depression or anxiety. [] (JOCELYN PARRA [employer]GER [employer]) Heart Score: Risk Factors: Risk Factors: DM, Current or recent (<one month) smoker, HTN, HLP, family hist ory of CAD, obesity. Risk Scores: Score 0 - 3: 2.5% MACE over next 6 weeks - Discharge Home Score 4 - 6: 20.3% MACE over next 6 weeks - Admit for Clinical Observation Score 7 - 10: 72.7% MACE over next 6 weeks - Early Invasive Strategies (JOCELYN PARRA MA[employer]GER [employer]) Allergies: Allergies: Allergies Coded Allergies Type Severity Reaction Last Updated Verified No Known Drug Allergies 8/1/16 No (JOCELYN PARRA [employer]GER [employer]) Physical Exam: PE: Constitutional: Well developed, well nourished, no acute distress, non-toxic appearance. [] HENT: Normocephalic, atraumatic, bilateral external ears normal, oropharynx moist, no oral exudates, nose normal. [] Eyes: PERRLA, EOMI, conjunctiva normal, no discharge. [] Neck: Normal range of motion, no tenderness, supple, no stridor. [] Cardiovascular:Heart rate regular rhythm, no murmur [] Lungs & Thorax: Bilateral breath sounds clear to auscultation [] Abdomen: Bowel sounds normal, soft, no tenderness, no masses, no pulsatile masses. [] Skin: Warm, dry, no erythema, no rash. [] Back: No tenderness, no CVA tenderness. [] Extremities: No tenderness, no cyanosis, no clubbing, ROM intact, no edema. [] Neurologic: Alert and oriented X 3, normal motor function, normal sensory function, no focal deficits noted. [] Psychologic: Affect normal, judgement normal, mood normal. Normal Physical Exam[] (JOCELYN PARRA APRN) EKG: EKG: [] (JOCELYN PARRA APRN) Radiology/Procedures: Radiology/Procedures: [] (JOCELYN PARRA APRN) Impression: CT ABD/PELVIS CT abdomen pelvis was done using 75 mL Omnipaque 300 contrast. Lung bases are clear. There is no effusion. A liver lesion is not identified. Gallbladder is contracted. Spleen and adrenal glands are normal. A pancreatic lesion is not identified. There is a 2.7 cm accessory spleen at the splenic hilum. There is no mass or hydronephrosis in the kidneys. There is no adenopathy. There is no bowel obstruction. There is no free fluid. The bladder is distended. Appendix is not identified with changes suggesting previous appendectomy. There is not definite CT evidence of a colitis. Small bowel pattern is normal. IMPRESSION: 1. Distended bladder. 2. Contracted gallbladder. 3. No abdominal or pelvic mass noted. 4. CT evidence of colitis not definitively identified. (KELLEY NAYLOR DO) Course & Med Decision Making: Course & Med Decision Making Pertinent Labs and Imaging studies reviewed. (See chart for details) Abdomen soft and nontender. See HPI. I did attempt to do a fecal occult stool and there was no stool in the rectal vault. There is also no blood seen. Alert and oriented. Speaks in full clear sentences. Skin pink warm and dry. Vital signs within normal limits. Rectal Exam: Normal tone, No mass, Positive control, No hemorrhoids Stool: None in vault Guaiac: Negative 1800: Calvin is signed over to Dr Naylor. [] (JOCELYN PARRA APRN) Course & Med Decision Making Patient CARE turned over to me by JOCELYN at shift change. Labs are within normal limits. Awaiting CT scan results. CT does not show any acute intra-abdominal process. UA does not show UTI. Patient will be discharged home for outpatient follow-up. Discussed results and plan of care with patient. Patient is instructed to follow up with PCP in one to 2 days. Appropriate discharge instructions given to patient to return to the ED or to seek immediate medical evaluation. Patient is instructed to return to the ED if symptoms worsen or if any concerns. (KELLEY NAYLOR DO) Dragon Disclaimer: Dragon Disclaimer: This electronic medical record was generated, in whole or in part, using a voice recognition dictation system. (JOCELYN PARRA APRN) Departure Departure Impression: Primary Impression: Rectal bleeding Disposition: 01 HOME, SELF-CARE Condition: STABLE Referrals: NO PCP (PCP) Patient Instructions: Rectal Bleeding Additional Instructions: Discussed results and plan of care with patient. Patient is instructed to follow up with PCP in one to 2 days. Appropriate discharge instructions given to patient to return to the ED or to seek immediate medical evaluation. Patient is instructed to return to the ED if symptoms worsen or if any concerns. Justicifation of Admission Dx: Justifications for Admission: Justification of Admission Dx: N/A (JOCELYN PARRA APRN) Justification of Admission Dx: No (KELLEY NAYLOR DO) JOCELYN PARRA APRN Sep 01, 2019 17:09 KELLEY NAYLOR DO Sep 01, 2019 18:58
[2019-09-01 17:15] LABS: BASO % 1 % (0-3); EOS # 0.1 x10^3/uL (0.0-0.7); EOS % 2 % (0-3); HEMATOCRIT 41.2 % (39.0-53.0); HEMOGLOBIN 14.7 g/dL (13.0-17.5); LYMPH % 36 % (24-48); MEAN CORPUSCULAR HEMOGLOBIN 32 pg (25-35); MEAN CORPUSCULAR HGB CONC 36 g/dL (31-37); MEAN CORPUSCULAR VOLUME 90 fL (79-100); MONO # 0.3 x10^3/uL (0.0-1.1); MONO % 5 % (0-9); NEUT % 55 % (31-73); PLATELET COUNT 164 x10^3/uL (140-400); RED BLOOD COUNT 4.57 x10^6/uL (4.30-5.70); RED CELL DISTRIBUTION WIDTH 12.4 % (11.5-14.5); WHITE BLOOD COUNT 5.5 x10^3/uL (4.0-11.0)
[2019-09-01] MEDS ORDERED: IV NORMAL SALINE 1000ML BAG 1,000 ML IV ONE (17:15)
[2019-09-01 17:23] LABS: CALCIUM 8.1 mg/dL (8.5-10.1); CREATININE 1.2 mg/dL (0.7-1.3); GFR 72.6; POTASSIUM 3.8 mmol/L (3.5-5.1)
[2019-09-01 17:27] LABS: PROTHROMBIN TIME PATIENT 13.6 SEC (11.7-14.0)
[2019-09-01 17:29] LABS: ALBUMIN 3.7 g/dL (3.4-5.0); ALBUMIN/GLOBULIN RATIO 1.3 (1.0-1.7); TOTAL BILIRUBIN 0.3 mg/dL (0.2-1.0); TOTAL PROTEIN 6.6 g/dL (6.4-8.2)
[2019-09-01] MEDS ORDERED: CONTRAST GIVEN. MC PRN (18:15)
[2019-09-01] MEDS ORDERED: IOHEXOL 300 MG/ML 100ML VIAL. IV ONE (18:30)
[2019-09-01] MEDS ORDERED: IOHEXOL 240 MG/ML 50ML VIAL. PO ONE (18:30)
--- NOTE | 2019-09-01 18:35 | RAD ---
CT abdomen pelvis with contrast. HISTORY: Bloody stool CT abdomen pelvis was done using 75 mL Omnipaque 300 contrast. Lung bases are clear. There is no effusion. A liver lesion is not identified. Gallbladder is contracted. Spleen and adrenal glands are normal. A pancreatic lesion is not identified. There is a 2.7 cm accessory spleen at the splenic hilum. There is no mass or hydronephrosis in the kidneys. There is no adenopathy. There is no bowel obstruction. There is no free fluid. The bladder is distended. Appendix is not identified with changes suggesting previous appendectomy. There is not definite CT evidence of a colitis. Small bowel pattern is normal. IMPRESSION: 1. Distended bladder. 2. Contracted gallbladder. 3. No abdominal or pelvic mass noted. 4. CT evidence of colitis not definitively identified. PQRS Compliance Statement: One or more of the following individualized dose reduction techniques were utilized for this examination: 1. Automated exposure control 2. Adjustment of the mA and/or kV according to patient size 3. Use of iterative reconstruction technique Electronically signed by: Maciel Thomson MD (09/01/2019 6:32 PM) [facility]
[2019-09-01 19:05] LABS: BILIRUBIN,URINE NEGATIVE (NEG); CLARITY,URINE CLEAR; COLOR,URINE YELLOW; NITRITE,URINE NEGATIVE (NEG); PROTEIN,URINE NEGATIVE (NEG-TRACE); UROBILINOGEN,URINE 0.2 mg/dL (0.2 mg/dL)
[2019-09-01 19:09] LABS: BACTERIA,URINE 0 /HPF (0-FEW); RBC,URINE 0 /HPF (0-2); SQUAMOUS EPITHELIAL CELL,UR OCC /LPF; WBC,URINE 0 /HPF (0-4)
[2019-09-01 19:26] VITALS: BP 121/59
== END 2019-09-01 19:40 | disposition home or self-care (01) ==
LOC: ER 16:13
DX: K92.1 Melena (principal); J45.909 Unspecified asthma, uncomplicated; F17.200 Nicotine dependence, unspecified, uncomplicated; F12.90 Cannabis use, unspecified, uncomplicated
CPT/HCPCS: 36415; 74177; 80053; 81001; 85025; 85610; 99285; J7030; Q9966; Q9967

== ENCOUNTER 2020-06-30 17:05 | Emergency (ER) | payer SELFPAY ==
[~2020-06-30] VITALS: Ht 180.3 cm; Wt 83.0 kg
[2020-06-30 17:49] VITALS: BP 120/71
[2020-06-30] MEDS ORDERED: HYDR-2761 PO (18:32)
[2020-06-30] MEDS ORDERED: AMOX875T PO (18:32)
--- NOTE | 2020-06-30 18:32 | PHYS DOC ---
Past Medical History Past Medical History: No Pertinent History, Asthma Additional Past Medical Histor: pinched nerve, oral infection Past Surgical History: Appendectomy Smoking Status: Current Every Day Smoker Alcohol Use: None Drug Use: Marijuana General Adult EDM: Chief Complaint: DENTAL PROBLEM HPI: HPI: Patient is a 30 year old male with a history of asthma presenting to the ED today complaining of mild right lower gum dental pain, symptoms have been going on for 1 year but got worse in the last 2 days. Patient states he has a plan to see a dentist. Denies any fever or trismus. Review of Systems: Review of Systems: Constitutional: Denies fever or chills. [] HENT: Reports dental pain denies nasal congestion or sore throat. [] Musculoskeletal: Denies back pain or joint pain. [] Integument: Denies rash. [] Neurologic: Denies headache, focal weakness or sensory changes. [] Psychiatric: Denies depression or anxiety. [] Heart Score: C/O Chest Pain: N/A Risk Factors: Risk Factors: DM, Current or recent (<one month) smoker, HTN, HLP, family history of CAD, obesity. Risk Scores: Score 0 - 3: 2.5% MACE over next 6 weeks - Discharge Home Score 4 - 6: 20.3% MACE over next 6 weeks - Admit for Clinical Observation Score 7 - 10: 72.7% MACE over next 6 weeks - Early Invasive Strategies Allergies: Allergies: Allergies Coded Allergies Type Severity Reaction Last Updated Verified No Known Drug Allergies 09/26/15 No Physical Exam: PE: Constitutional: Well developed, well nourished, no acute distress, non-toxic appearance. [] HENT: Normocephalic, atraumatic, bilateral external ears normal, oropharynx moist, no oral exudates, nose normal. [] tooth #32 is broken and decayed. No dental redness or abscess Skin: Warm, dry, no erythema, no rash. [] Back: No tenderness, no CVA tenderness. [] Extremities: No tenderness, no cyanosis, no clubbing, ROM intact, no edema. [] Neurologic: Alert and oriented X 3, normal motor function, normal sensory function, no focal deficits noted. [] Psychologic: Affect normal, judgement normal, mood normal. [] Current Patient Data: Vital Signs: Vital Signs Date Time Temp Pulse Resp B/P (MAP) Pulse Ox O2 Delivery O2 Flow Rate FiO2 06/30/20 17:49 98.1 84 16 120/71 (87) 98 98.1 EKG: EKG: [] Radiology/Procedures: Radiology/Procedures: [] Course & Med Decision Making: Course & Med Decision Making Pertinent Labs and Imaging studies reviewed. (See chart for details) This is a 30-year-old male patient presenting to the ED today with a dental infection. Discharged on amoxicillin. Follow-up with PCP and dentist. Lane Disclaimer: Lane Disclaimer: This electronic medical record was generated, in whole or in part, using a voice recognition dictation system. Departure Departure Impression: Primary Impression: Infected dental caries Disposition: 02 SHORT TERM HOSPITAL Condition: STABLE Referrals: NO PCP (PCP) Follow-up with your own dentist as soon as possible Patient Instructions: Dental Pain Additional Instructions: You were seen for dental pain. Take the prescribed antibiotics until completed. Follow-up with your dentist as soon as possible Scripts Amoxicillin (AMOXICILLIN) 875 Mg Tablet 1 TAB PO BID, #14 TAB Prov: JACEY EASON APRN 06/30/20 Hydrocodone Bit/Acetaminophen (HYDROCODONE-APAP 5-325 ) 1 Tab Tablet 1 TAB PO PRN Q6HRS PRN for PAIN, #8 TAB 0 Refills Prov: JACEY EASON APRN 06/30/20 JACEY EASON APRN June 30, 2020 18:32
== END 2020-06-30 18:53 | disposition home or self-care (01) ==
LOC: ER 17:05
DX: K04.7 Periapical abscess without sinus (principal); J45.909 Unspecified asthma, uncomplicated; F17.200 Nicotine dependence, unspecified, uncomplicated
CPT/HCPCS: 99283

== ENCOUNTER 2020-07-13 12:46 | Emergency (ER) | payer SELFPAY ==
[~2020-07-13] VITALS: Ht 180.3 cm; Wt 69.0 kg
[~2020-07-13 12:46] MED LIST changes: +AMOX875T PO; +HYDR-2761 PO
[2020-07-13] MEDS ORDERED: CHLO15MO2 PO (13:24)
[2020-07-13] MEDS ORDERED: DICL50TA2 PO (13:24)
[2020-07-13] MEDS ORDERED: HYDR-2761 PO (13:24)
[2020-07-13 13:25] VITALS: BP 163/87
--- NOTE | 2020-07-13 13:25 | PHYS DOC ---
Past Medical History Past Medical History: No Pertinent History, Asthma Additional Past Medical Histor: pinched nerve, oral infection Past Surgical History: Appendectomy Smoking Status: Current Every Day Smoker Alcohol Use: None Drug Use: Marijuana General Adult EDM: Chief Complaint: DENTAL PROBLEM HPI: HPI: Patient is a 30 year old male patient who presents to the ED today complaining of 10 out of 10 right upper and lower gum dental pain, symptoms for 1 year, symptoms got worse in the last 2 weeks. Patient was seen in the ED on June 30, 2020 for the same complaint. He states he has called a bunch of dental clinics and they cannot see him until he has his wisdom teeth removed, he also states he does not have insurance. Patient is demanding, right now he is requesting pain medicine to be administered immediately. Review of Systems: Review of Systems: HENT: Reports dental pain. Denies nasal congestion or sore throat. [] Respiratory: Denies cough or shortness of breath. [] Musculoskeletal: Denies back pain or joint pain. [] Integument: Denies rash. [] Neurologic: Denies headache, focal weakness or sensory changes. [] Psychiatric: Denies depression or anxiety. [] Heart Score: C/O Chest Pain: N/A Risk Factors: Risk Factors: DM, Current or recent (<one month) smoker, HTN, HLP, family history of CAD, obesity. Risk Scores: Score 0 - 3: 2.5% MACE over next 6 weeks - Discharge Home Score 4 - 6: 20.3% MACE over next 6 weeks - Admit for Clinical Observation Score 7 - 10: 72.7% MACE over next 6 weeks - Early Invasive Strategies Allergies: Allergies: Allergies Coded Allergies Type Severity Reaction Last Updated Verified No Known Drug Allergies 09/26/15 No Physical Exam: PE: Constitutional: Well developed, well nourished, no acute distress, non-toxic appearance. [] HENT: Normocephalic, atraumatic, bilateral external ears normal, oropharynx moist, no oral exudates, nose normal. [ Most of his teeth are broken, wisdom teeth has severe dental decay and are broken no gum erythema or abscess Skin: Warm, dry, no erythema, no rash. [] Back: No tenderness, no CVA tenderness. [] Extremities: No tenderness, no cyanosis, no clubbing, ROM intact, no edema. [] Neurologic: Alert and oriented X 3, normal motor function, normal sensory function, no focal deficits noted. [] Psychologic: Affect normal, judgement normal, mood normal. [] EKG: EKG: [] Radiology/Procedures: Radiology/Procedures: [] Course & Med Decision Making: Course & Med Decision Making Pertinent Labs and Imaging studies reviewed. (See chart for details) This is a 30-year-old male patient presenting to the ED today with dental pain that began 1 year ago and has gotten worse in the last 2 weeks. Patient was seen in the ED on June 30, 2020 for the same complaint and he was sent home with pain medicine and antibiotics. He states he has an appointment with an surgeon to remove his wisdom teeth on July 01, 2020. Lane Disclaimer: Lane Disclaimer: This electronic medical record was generated, in whole or in part, using a voice recognition dictation system. Departure Departure Impression: Primary Impression: Infected dental caries Additional Impression: Dentalgia Disposition: HOME / SELF CARE / HOMELESS Condition: STABLE Referrals: NO PCP (PCP) follow up with a dentist or oral surgeon as soon as you can Patient Instructions: Dental Pain, [id number] Additional Instructions: You were seen for dental pain. Take the prescribed medication as ordered. Please see your dentist or oral surgeon as soon as you can Scripts Chlorhexidine Gluconate (PERIDEX) 15 Ml Mouthwash 15-30 ML PO TID for 8 Days, #473 ML 0 Refills Prov: JACEY EASON APRN 07/13/20 Diclofenac Potassium (DICLOFENAC POTASSIUM) 50 Mg Tablet 1 TAB PO BID, #20 TAB 0 Refills Prov: JACEY EASON APRN 07/13/20 Hydrocodone Bit/Acetaminophen (HYDROCODONE-APAP 5-325 ) 1 Tab Tablet 1 TAB PO PRN Q6HRS PRN for PAIN, #8 TAB 0 Refills Prov: JACEY EASON APRN 07/13/20 JACEY EASON APRN July 13, 2020 13:25
== END 2020-07-13 13:30 | disposition home or self-care (01) ==
LOC: ER 12:46
DX: K04.7 Periapical abscess without sinus (principal); J45.909 Unspecified asthma, uncomplicated; F17.200 Nicotine dependence, unspecified, uncomplicated
CPT/HCPCS: 99283

== ENCOUNTER 2020-09-20 15:01 | Emergency (ER) | payer SELFPAY ==
[~2020-09-20] VITALS: Ht 180.3 cm; Wt 81.2 kg
[~2020-09-20 15:01] MED LIST changes: +CHLO15MO2 PO; +DICL50TA2 PO
[2020-09-20 17:16] VITALS: BP 140/61
[2020-09-20] MEDS ORDERED: POLY10DR EACHEYE (18:30)
--- NOTE | 2020-09-20 18:31 | ED.ADGEN ---
Past Medical History Past Medical History: No Pertinent History, Asthma Additional Past Medical Histor: pinched nerve, oral infection Past Surgical History: Appendectomy Smoking Status: Current Every Day Smoker Additional Information: 1 PPD Alcohol Use: None Drug Use: Marijuana General Adult EDM: Chief Complaint: EYE PROBLEMS HPI: HPI: Patient is a 30 year old male who presents emergency department with complaints of bilateral eye redness and since yesterday. He states that his eyes do feel a little itchy today. Patient reports that this morning there was crusting on his eyes. He denies any vision changes, photosensitivity, ear pain, headache, sore throat, nasal congestion, shortness of breath, nausea, vomiting, diarrhea, abdominal pain, body aches, fatigue, or sneezing. Patient currently denies any pain. Review of Systems: Review of Systems: Complete ROS is negative unless otherwise noted in HPI. Allergies: Allergies: Allergies Coded Allergies Type Severity Reaction Last Updated Verified No Known Drug Allergies 09/26/15 No Physical Exam: PE: See Above Constitutional: Well developed, well nourished, no acute distress, non-toxic appearance. [] HENT: Normocephalic, atraumatic, bilateral external ears normal, nose normal. [] Eyes: PERRLA, EOMI, conjunctiva injected bilaterally with watery discharge bilaterally Neck: Normal range of motion, no stridor. [] Cardiovascular:Heart rate regular rhythm Lungs & Thorax: Respirations even and unlabored, no retractions, no respiratory distress Skin: Warm, dry, no erythema, no rash. [] Extremities: No cyanosis, ROM intact, no edema. [] Neurologic: Alert and oriented X 3, no focal deficits noted. [] Psychologic: Affect normal, judgement normal, mood normal. [] Current Patient Data: Vital Signs: Vital Signs Date Time Temp Pulse Resp B/P (MAP) Pulse Ox O2 Delivery O2 Flow Rate FiO2 09/20/20 17:16 97.1 59 16 140/61 (112) 98 Room Air 97.1 EKG: EKG: [] Heart Score: C/O Chest Pain: No Radiology/Procedures: Radiology/Procedures: [] Course & Med Decision Making: Course & Med Decision Making Pertinent Labs and Imaging studies reviewed. (See chart for details) [] Dragon Disclaimer: Dragon Disclaimer: This electronic medical record was generated, in whole or in part, using a voice recognition dictation system. Departure Departure Impression: Primary Impression: Acute conjunctivitis of both eyes Disposition: 01 HOME / SELF CARE / HOMELESS Condition: STABLE Referrals: NO PCP (PCP) Patient Instructions: Allergic Conjunctivitis, [id number], Bacterial Conjunctivitis, [id number] Additional Instructions: Fill the prescription and use as directed if symptoms do not resolve with over the counter eye allergy drops. Follow up with your primary care doctor in 1-2 days. Return to the ER if symptoms worsen. [facility] [address] [place] [address] [facility] [address] [place] [address] [facility] [address] [facility] [place] [address] [facility] [address] [place] [address] [facility] [address] [place] [address] [facility] [address] [place] [address] [facility] [address] [place] [address] [facility] [address] [place] [address] [facility] [address] [place] [address] [facility] [address] [place] [address] Scripts Polymyxin B Sulf/Trimethoprim (POLYTRIM EYE DROPS) 10 Ml Drops 2 DROP EACHEYE Q6HRS for 7 Days, #10 ML 0 Refills Prov: KIMBERLEE RUST QUILL [employer] 09/20/20 Problem Qualifiers Primary Impression: Acute conjunctivitis of both eyes Acute conjunctivitis type: unspecified Qualified Codes: H10.33 - Unspecified acute conjunctivitis, bilateral KIMBERLEE RUST [employer] Sep 20, 2020 18:31
== END 2020-09-20 19:01 | disposition home or self-care (01) ==
LOC: ER 15:01
DX: H10.33 Unspecified acute conjunctivitis, bilateral (principal); J45.909 Unspecified asthma, uncomplicated; F17.200 Nicotine dependence, unspecified, uncomplicated
CPT/HCPCS: 99283

== ENCOUNTER 2020-10-26 15:21 | Observation (INO) | payer SELFPAY ==
[~2020-10-26] VITALS: Ht 180.3 cm; Wt 83.6 kg
[~2020-10-26 15:21] MED LIST changes: +POLY10DR EACHEYE
--- NOTE | 2020-10-26 15:43 | PHYS DOC ---
Past Medical History Past Medical History: Asthma Additional Past Medical Histor: pinched nerve, oral infection Past Surgical History: Appendectomy Smoking Status: Current Every Day Smoker Alcohol Use: None Drug Use: Marijuana General Adult EDM: Chief Complaint: wrist pain HPI: HPI: 30-year-old male presents to the emergency department with left wrist pain after he fell on an outstretched left hand when he was swinging on a swing set. He reports pain on the backside of his wrist with limited range of motion of the wrist secondary to pain. He denies any skin breakdown. Denies any further bodily injuries. The patient denies nausea, vomiting, fever, chills, chest pain, shortness of breath or any other complaints. Review of Systems: Review of Systems: ROS is otherwise negative except for what was mentioned in HPI Heart Score: C/O Chest Pain: No Allergies: Allergies: Allergies Coded Allergies Type Severity Reaction Last Updated Verified No Known Drug Allergies 09/26/15 No Physical Exam: PE: Constitutional: No acute distress, non-toxic appearance. HENT: Atraumatic, bilateral external ears normal, nose normal. Eyes: PERRLA, EOMI, conjunctiva normal, no discharge. Neck: Normal range of motion, supple, no stridor. Cardiovascular: Heart rate regular rhythm. 2+ radial pulses Lungs & Thorax: No respiratory distress, symmetrical expansion. Abdomen: Soft, no tenderness Skin: Warm, dry. No laceration or skin breakdown Extremities: Tenderness is appreciated to the dorsal left wrist with associated hematoma present. Neurologic: Alert and oriented X 3, normal motor function, normal sensory function, no focal deficits noted. Non ataxic gait. GCS 15. 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 Current Patient Data: Vital Signs: Vital Signs Date Time Temp Pulse Resp B/P (MAP) Pulse Ox O2 Delivery O2 Flow Rate FiO2 10/26/20 16:03 98.3 62 19 119/64 (112) 98 Room Air 98.3 10/26/20 15:59 16 96 Radiology/Procedures: Radiology/Procedures: Exam: Left wrist 3 views INDICATION: Rest pain, fall from today TECHNIQUE: Frontal, lateral and oblique views of the left wrist Comparisons: None FINDINGS: There is a comminuted fracture through the distal radius with intra-articular extension. Bone mineralization is normal. Soft tissues are unremarkable. Joint spaces are well-maintained. IMPRESSION: Comminuted fracture through the distal radius with intra-articular extension. Electronically signed by: Baldemar Castañeda MD (10/26/2020 4:12 PM) Course & Med Decision Making: Course & Med Decision Making I discussed case with orthopedic surgeon Dr. White, who will perform surgery in the morning at 730. Patient will be admitted to the hospitalist Dr. Macdonald. Patient otherwise stable and amenable to the plan. He was placed in a sugartong splint, post splint x-ray pending to be followed up by inpatient doctor. Capillary refill and neurovascular status of left upper extremity are intact after splint was evaluated by me Departure Departure Impression: Primary Impression: Distal radius fracture, left Disposition: ADMITTED INPATIENT Admitting Physician: MOLLY (Renae) Condition: STABLE Referrals: NO PCP (PCP) WILFRED QUACH DO Oct 26, 2020 15:43
[2020-10-26] MEDS ORDERED: HYDROcodone/APAP 5/325MG 1 TAB TABLET PO ONE (16:00)
--- NOTE | 2020-10-26 16:14 | RAD ---
Exam: Left wrist 3 views INDICATION: Rest pain, fall from today TECHNIQUE: Frontal, lateral and oblique views of the left wrist Comparisons: None FINDINGS: There is a comminuted fracture through the distal radius with intra-articular extension. Bone mineral ization is normal. Soft tissues are unremarkable. Joint spaces are well-maintained. IMPRESSION: Comminuted fracture through the distal radius with intra-articular extension. Electronically signed by: Baldemar Castañeda MD (10/26/2020 4:12 PM) [place]
--- NOTE | 2020-10-26 17:59 | PDOC1 ---
History and Physical Date of Admission Date of Admission DATE: 10/26/20 TIME: 17:57 Identification/Chief Complaint Chief Complaint Left arm pain Source Source: Patient History of Present Illness History of Present Illness Mr Sinclair is a 30-year-old male with PMHx asthma, smoker who presents to the emergency department with left wrist pain after he fell off a swingset attempting to do tricks to impress children. He fell directly onto his outstretched left hand. He reports pain on the backside of his wrist with limited range of motion of the wrist secondary to pain. He denies any skin breakdown. Denies any further bodily injuries. The patient denies nausea, vomiting, fever, chills, chest pain, shortness of breath or any other complaint s. Labs with WBC 9.4, Hb 15.9, platelets 198, NA 138, K3.9, BUN 12, CR 1.1 glucose 3.5, rapid COVID-19 negative. No numbness or tingling, appears neurovascularly intact. Left wrist three view with comminuted fracture through the distal radius with intra-articular extension. Placed in splint in ED and given IV Morphine. Admitted for further care with orthopedic surgery consultation Past Medical History Cardiovascular: No pertinent hx Pulmonary: Asthma Renal/: No pertinent hx Past Surgical History Past Surgical History: Appendectomy Family History Family History: No Significant Social History Smoke: 1 pack per day ALCOHOL: none Drugs: Marijuana Current Problem List Problem List Problems Medical Problems: (1) Distal radius fracture, left Status: Acute Current Medications Current Medications Current Medications Acetaminophen/ Hydrocodone Bitart (Lortab 5/325) 1 tab 1X ONCE PO Last adm inistered on 10/26/20at 15:59; Start 10/26/20 at 16:00; Stop 10/26/20 at 16:01; Status DC Morphine Sulfate (Morphine Sulfate) 5 mg 1X ONCE IV ; Start 10/26/20 at 18:00; Stop 10/26/20 at 18:01; Status UNV Active Scripts Active Polytrim Eye Drops (Polymyxin B Sulf/Trimethoprim) 10 Ml Drops 2 Drop EACHEYE Q6HRS 7 Days Peridex (Chlorhexidine Gluconate) 15 Ml Mouthwash 15-30 Ml PO TID 8 Days Diclofenac Potassium 50 Mg Tablet 1 Tab PO BID Hydrocodone-Apap 5-325 (Hydrocodone Bit/Acetaminophen) 1 Tab Tablet 1 Tab PO PRN Q6HRS PRN Amoxicillin 875 Mg Tablet 1 Tab PO BID Hydrocodone-Apap 5-325 (Hydrocodone Bit/Acetaminophen) 1 Tab Tablet 1 Tab PO PRN Q6HRS PRN Augmentin 875-125 Tablet (Amoxicillin/Potassium Clav) 1 Each Tablet 1 Tab PO BID Colace (Docusate Sodium) 100 Mg Capsule 100 Mg PO BID Percocet 5-325 Mg Tablet (Oxycodone/Acetaminophen) 1 Each Tablet 1 Tab PO PRN Q4HRS PRN Naproxen 500 Mg Tablet 1 Tab PO BID Gabapentin (Gabapentin) 300 Mg Capsule 300 Mg PO TID Diclofenac Sodium 50 Mg Tablet.dr 1 Tab PO BID Allergies Allergies: Coded Allergies: No Known Drug Allergies (Unverified , 09/26/15) ROS General: No: Chills, Night Sweats, Fatigue, Malaise, Appetite, Other PSYCHOLOGICAL ROS: No: Anxiety, Behavioral Disorder, Concentration difficultie, Decreased libido, Depression, Disorientation, Hallucinations, Hostility, Irritablity, Memory difficulties, Mood Swings, Obsessive thoughts, Physical abuse, Sexual abuse, Sleep disturbances, Suicidal ideation, Other Eyes: No Blurry vision, No Decreased vision, No Double vision, No Dry eyes, No Excessive tearing, No Eye Pain, No Itchy Eyes, No Loss of vision, No Photophobi a, No Scotomata, No Uses contacts, No Uses glasses, No Other HEENT: No: Heacaches, Visual Changes, Hearing change, Nasal congestion, Nasal discharge, Oral lesions, Sinus pain, Sore Throat, Epistaxis, Sneezing, Snoring, Tinnitus, Vertigo, Vocal changes, Other ALLERGY AND IMMUNOLOGY: No: Hives, Insect Bite Sensitivity, Itchy/Watery Eyes, Nasal Congestion, Post Nasal Drip, Seasonal Allergies, Other Hematological and Lymphatic: No: Bleeding Problems, Blood Clots, Blood Transfusions, Brusing, Night Sweats, Pallor, Swollen Lymph Nodes, Other ENDOCRINE: No: Breast Changes, Galactorrhea, Hair Pattern Changes, Hot Flashes, Malaise/lethargy, Mood Swings, Palpitations, Polydipsia/polyuria, Skin Changes, Temperature Intolerance, Unexpected Weight Changes, Other Breast: No New/Changing Breast Lumps, No Nipple changes, No Nipple discharge, No Other Respiratory: No: Cough, Hemoptysis, Orthopnea, Pleuritic Pain, Shortness of breath, SOB with excertion, Sputum Changes, Stridor, Tachypnea, Wheezing, Other Cardiovascular: No Chest Pain, No Palpitations, No Orthopnea, No Paroxysmal Noc. Dyspnea, No Edema, No Lt Headedness, No Other Gastrointestinal: No Nausea, No Vomiting, No Abdominal Pain, No Diarrhea, No Constipation, No Melena, No Hematochezia, No Other Genitourinary: No Dysuria, No Frequency, No Incontinence, No Hematuria, No Retention, No Discharge, No Urgency, No Pain, No Flank Pain, No Other, No , No , No , No , No , No , No Musculoskeletal: Yes Joint Stiffness, Yes Joint Swelling, Yes Muscle Pain; No Gait Disturbance, No Joint Pain, No Muscular Weakness, No Pain In:, No Swelling In:, No Other Neurological: No Behavorial Changes, No Bowel/Bladder ControlChng, No Confusion, No Dizziness, No Gait Disturbance, No Headaches, No Impaired Coord/balance, No Memory Loss, No Numbness/Tingling, No Seizures, No Speech Problems, No Tremors, No Visual Changes, No Weakness, No Other Skin: No Dry Skin, No Eczema, No Hair Changes, No Lumps, No Mole Changes, No Mottling, No Nail Changes, No Pruritus, No Rash, No Skin Lesion Changes, No Other, No Acne Physical Exam General: Alert, Oriented X3, Cooperative, moderate distress HEENT: Atraumatic, PERRLA, EOMI, Mucous membr. moist/pink Lungs: Clear to auscultation, Normal air movement Heart: S1S2, RRR, no thrills, no rubs, no gallops, no murmurs Abdomen: Normal bowel sounds, Soft, No tenderness, No hepatosplenomegaly, No masses Rectal Exam: not examined Extremities: No clubbing, No cyanosis, No edema, Normal pulses, Other (Left wrist splinted and in sling, elevated, moving all fingers) Skin: No rashes, No breakdown, No significant lesion Neuro: Normal gait, Normal speech, Strength at 5/5 X4 ext, Normal tone, Sensation intact, Cranial nerves 3-12 NL, Reflexes 2+ Vitals Vitals Vital Signs Date Time Temp Pulse Resp B/P (MAP) Pulse Ox O2 Delivery O2 Flow Rate FiO2 10/26/20 16:03 98.3 62 19 119/64 (112) 98 Room Air 98.3 Images Images Left wrist radiograph: There is a comminuted fracture through the distal radius with intra-articular extension. Bone mineralization is normal. Soft tissues are unremarkable. Joint spaces are well-maintained. IMPRESSION: Comminuted fracture through the distal radius with intra-articular extension. VTE Prophylaxis Ordered VTE Prophylaxis Devices: Yes VTE Pharmacological Prophylaxi: No Assessment/Plan Assessment/Plan A/P: Left wrist fracture - given intrarticular involvement likely needs surgical repair. No further testing required prior to planned surgery. NPO after midnight, IV morphine and prn oxycodone, APAP and bowel regimen ordered Smoker - counseled for 5 minutes on cessation, offered nicotine patch H/o asthma - no currently breathing problems FEN - NPO after midnight PPX - ambulatory, low DVT risk FULL CODE Dispo - observation, likely home after surgical repair tomorrow Justifications for Admission Other Justification ROSENOD SANTORO MD Oct 26, 2020 17:59
[2020-10-26] MEDS ORDERED: ONDANSETRON PF 4 MG/2 ML VIAL. IVP PRN (18:00)
[2020-10-26] MEDS ORDERED: MORPHINE SULFATE 10 MG/ML VIAL. IV ONE (18:00)
[2020-10-26] MEDS ORDERED: ACETAMINOPHEN 325 MG TABLET. PO PRN (18:00)
[2020-10-26] MEDS ORDERED: NICOTINE 21MG PATCH. TD PRN (18:00)
[2020-10-26 18:14] LABS: BASO % 0 % (0-3); EOS # 0.1 x10^3/uL (0.0-0.7); EOS % 1 % (0-3); HEMATOCRIT 42.8 % (39.0-53.0); HEMOGLOBIN 15.2 g/dL (13.0-17.5); LYMPH # 1.7 x10^3/uL (1.0-4.8); LYMPH % 18 % (24-48); MEAN CORPUSCULAR HEMOGLOBIN 32 pg (25-35); MEAN CORPUSCULAR HGB CONC 36 g/dL (31-37); MEAN CORPUSCULAR VOLUME 91 fL (79-100); MONO # 0.5 x10^3/uL (0.0-1.1); MONO % 5 % (0-9); NEUT # 7.2 x10^3/uL (1.8-7.7); NEUT % 76 % (31-73); PLATELET COUNT 198 x10^3/uL (140-400); RED BLOOD COUNT 4.72 x10^6/uL (4.30-5.70); RED CELL DISTRIBUTION WIDTH 12.7 % (11.5-14.5); WHITE BLOOD COUNT 9.4 x10^3/uL (4.0-11.0)
[2020-10-26 18:23] LABS: CALCIUM 8.5 mg/dL (8.5-10.1); CREATININE 1.1 mg/dL (0.7-1.3); GFR 79.7; POTASSIUM 3.9 mmol/L (3.5-5.1)
--- NOTE | 2020-10-26 19:31 | RAD ---
EXAMINATION: Left wrist radiograph. VIEWS: 3 COMPARISON: 11/14/2020 INDICATION:30 years, Male, fracture, status post reduction. FINDINGS/ IMPRESSION: Overlying cast partially obscures fine osseous details. Redemonstrated acute comminuted fracture of t he distal radius with unchanged fracture alignment. No dislocation or subluxation. Electronically signed by: Phyllis Liz MD (10/26/2020 7:29 PM) [facility]
--- NOTE | 2020-10-26 20:00 | NUR ---
Patient arrived on unit from ED at approximately 1999. Oriented to room and call system for nurses. Alert et oriented x 4. Sling present on left arm due to fracture. Surgery scheduled in the morning to correct.
[2020-10-26 21:00] VITALS: BP 137/71
[2020-10-26] MEDS ORDERED: oxyCODONE/APAP 5/325 1 TAB TABLET PO PRN (21:30)
[2020-10-26] MEDS ORDERED: SENNOSIDES/DOCUSATE 8.6/50MG TABLET. PO PRN (21:30)
[2020-10-26] MEDS ORDERED: ZOLPIDEM 5 MG TABLET. PO PRN (21:30)
[2020-10-26] MEDS ORDERED: MORPHINE SULFATE 4 MG/ML INJ. IV PRN (21:30)
[2020-10-26] MEDS ORDERED: POLYETHYLENE GLYCOL 3350 17 GM PACKET. PO PRN (21:30)
[2020-10-26] MEDS ORDERED: ALBUTEROL SULFATE 2.5 MG/3 ML NEBU. NEB PRN (21:30)
[2020-10-26 22:53] VITALS: BP 134/71
[2020-10-27] VITALS (8 sets, daily range): BP systolic 109–139; BP diastolic 58–69
--- NOTE | 2020-10-27 06:45 | NUR ---
Patient taken by transportation in bed to surgery.
[2020-10-27] MEDS ORDERED: fentaNYL PF VIAL 100 MCG/2 ML VIAL ONE ×2 (06:47→06:54)
[2020-10-27] MEDS ORDERED: ONDANSETRON PF 4 MG/2 ML VIAL. ONE (06:53)
[2020-10-27] MEDS ORDERED: PROPOFOL 10 MG/ML (20ML) VIAL. IV ONE (06:53)
[2020-10-27] MEDS ORDERED: DEXAMETHASONE SOD PHOS 4 MG/ML VIAL ONE (06:53)
[2020-10-27] MEDS ORDERED: LIDOCAINE 1% PF 5 ML VIAL. ONE (06:53)
[2020-10-27] MEDS ORDERED: MIDAZOLAM HCL/PF 2 MG/2 ML VIAL. ONE (06:54)
[2020-10-27] MEDS ORDERED: fentaNYL PF VIAL 100 MCG/2 ML VIAL IVP PRN ×2 (07:00→11:00)
[2020-10-27] MEDS ORDERED: MORPHINE SULFATE 2 MG/ML INJ. IVP PRN (07:00)
[2020-10-27] MEDS ORDERED: PROCHLORPERAZINE 10 MG/2 ML VIAL. IVP PRN (07:00)
[2020-10-27] MEDS ORDERED: HYDROmorphone 2 MG/ML VIAL IVP PRN (07:00)
[2020-10-27] MEDS ORDERED: fentaNYL PF VIAL 100 MCG/2 ML VIAL IVP ONE (07:15)
[2020-10-27] MEDS: IV RINGERS,LACTATED 1000ML 1,000 ML IV SCH ×2 (07:17→09:51)
[2020-10-27] MEDS: fentaNYL PF VIAL 100 MCG/2 ML VIAL IVP PRN ×2 (07:22→07:28)
--- NOTE | 2020-10-27 07:57 | CONS ---
DATE OF CONSULTATION: 10/27/2020 REQUESTING CONSULTATION PHYSICIAN: George Macdonald MD REASON FOR CONSULTATION: Left wrist fracture. HISTORY OF PRESENT ILLNESS: The patient is a 30-year-old male who fell on an outstretched left hand when he was apparently doing somewhat of a trick for his kids on the swing set and fell off. He had immediate onset of pain, deformity to the left wrist, but no skin compromise. He denies any other extremity injury, did not hit his head. No loss of consciousness. PAST MEDICAL HISTORY: Significant for asthma, history of some type of infection in his mouth and a pinched nerve that since resolved. PAST SURGICAL HISTORY: Significant for appendectomy. SOCIAL HISTORY: He is a cigarette smoker and occasional use of marijuana. Denies alcohol use. ALLERGIES: He has no known drug allergies. MEDICATIONS: Minimally and occasional inhaler. FAMILY HISTORY: Noncontributory. REVIEW OF SYSTEMS: Denies any loss of consciousness. He is on some eyedrops and chlorhexidine mouthwash and some Augmentin for the oral infection, but denies any other joint problems. No focal weakness, numbness, tingling, radiating pain, change in bowel or bladder habits or other constitutional symptoms. PHYSICAL EXAMINATION: GENERAL: This is a pleasant, cooperative 30-year-old male, alert and oriented, no acute distress. EXTREMITIES: On examination of the left wrist, he has dorsal angulation and deformity of the wrist with stiffness. He can flex and extend his fingers, but with pain. He has normal examination of the contralateral right wrist, bilateral elbows and shoulders with intact motor function, distal pulses, sensation, reflexes, skin in both upper extremities throughout. LABORATORY DATA: X-rays show a comminuted intraarticular displaced distal radius fracture on the left. IMPRESSION: Left intra-articular distal radius fracture. TREATMENT PLAN: I went over with him that his wrist bone over the distal radius is broken into the joint and displaced the two fragments at the wrist joint are apart and angulated. I covered with him that I would recommend surgically putting them back in place and fixing them with a plate and screw fixation. The alternative is really that his wrist is left angulated and is a risk for premature arthritis due to the displacement at the joint space. Operative risks could include the possibility of nonhealing, infection, nerve or blood vessel damage, medical or other anesthetic complications among others. Even under the best of circumstances, he may have some stiffness as well. We described the postoperative course. All his questions were answered. He agrees to proceed with surgical evaluation and treatment. CHRISTIANA DR: Elsa TID: [id number]
[2020-10-27] MEDS ORDERED: BUPIVACAINE MPF 0.5% 30 ML VIAL. ONE (08:17)
[2020-10-27] MEDS ORDERED: OXYC1TAB15 PO (10:21)
--- NOTE | 2020-10-27 10:25 | DISCH ---
DISCHARGE INSTRUCTIONS Condition on Discharge Condition on Discharge: Stable Activity After Discharge Activity Instructions for Disc: Activity as tolerated, Other, see below (Fine motor use of left hand only such as gently moving the fingers eating writing typing and similar activities no grasping pushing pulling or lifting) Lifting Instructions after Dis: No heavy lifting, No pulling or pushing Driving Instructions after Dis: Do not drive Weight Bearing Status after Di: Non weight bearing Diet after Discharge Diet after Discharge: Regular Wound Incision Care Wound/Incision Care: Ice to area for comfort, Do not change dressing (Keep dressing intact along with splint and call if wet ) Contacting the [facility] after DC Call your doctor for: Concerns you may have Follow-Up Follow up with: Dr. White or Barbara 1 week ASHLY WHITE MD Oct 27, 2020 10:24
[2020-10-27] MEDS ORDERED: KETOROLAC 30 MG/ML VIAL. IVP PRN (11:00)
--- NOTE | 2020-10-27 11:01 | PDOC ---
[employer] PROGRESS NOTE Date of Service DOS: DATE: 10/27/20 TIME: 11:00 Chief Complaint Chief Complaint A/P: Left wrist fracture - given intrarticular involvement s/p ORIF surgical repair. Smoker - counseled for 5 minutes on cessation, offered nicotine patch H/o asthma - no currently breathing problems FEN - Regular diet PPX - ambulatory, low DVT risk FULL CODE Dispo - observation, likely home after surgical repair tomorrow History of Present Illness History of Present Illness Mr Sinclair is a 30-year-old male with PMHx asthma, smoker who presents to the emergency department with left wrist pain after he fell off a swingset attempting to do tricks to impress children. He fell directly onto his outstretched left hand. He reports pain on the backside of his wrist with li mited range of motion of the wrist secondary to pain. He denies any skin breakdown. Denies any further bodily injuries. The patient denies nausea, vomiting, fever, chills, chest pain, shortness of breath or any other complaints. Labs with WBC 9.4, Hb 15.9, platelets 198, NA 138, K3.9, BUN 12, CR 1.1 glucose 3.5, rapid COVID-19 negative. No numbness or tingling, appears neurovascularly intact. Left wrist three view with comminuted fracture through the distal radius with intra-articular extension. Placed in splint in ED and given IV Morphine. Admitted for further care with orthopedic surgery consultation Seen status post ORIF left wrist pain improved. Complaining of some numbness index and middle finger has poor range of motion. No chest pain or shortness of breath as he will go home. Blood work normal. Advised follow-up in 1 week orthopedic surgery Vitals/I&O Vitals/I&O: Vital Signs Date Time Temp Pulse Resp B/P (MAP) Pulse Ox O2 Delivery O2 Flow Rate FiO2 10/27/20 10:54 97.8 50 18 139/69 (92) 93 Room Air 97.8 10/27/20 10:30 10.0 I & O 10/26/20 10/26/20 10/27/20 15:00 23:00 07:00 Output Total 3 ml Balance -3 ml Physical Exam General: Alert, Oriented X3, Cooperative, moderate distress Abdomen: Normal bowel sounds, Soft, No tenderness, No hepatosplenomegaly, No masses Extremities: No clubbing, No cyanosis, No edema, Normal pulses, Other (Left wrist splinted and in sling, elevated, moving all fingers) Skin: No rashes, No breakdown, No significant lesion Labs Labs: Laboratory Tests Test 10/26/20 18:00 10/26/20 18:05 SARS-CoV-2 Antigen (Rapid) Negative (NEGATIVE) White Blood Count 9.4 x10^3/uL (4.0-11.0) Red Blood Count 4.72 x10^6/uL (4.30-5.70) Hemoglobin 15.2 g/dL (13.0-17.5) Hematocrit 42.8 % (39.0-53.0) Mean Corpuscular Volume 91 fL (79-100) Mean Corpuscular Hemoglobin 32 pg (25-35) Mean Corpuscular Hemoglobin Concent 36 g/dL (31-37) Red Cell Distribution Width 12.7 % (11.5-14.5) Platelet Count 198 x10^3/uL (140-400) Neutrophils (%) (Auto) 76 % (31-73) Lymphocytes (%) (Auto) 18 % (24-48) Monocytes (%) (Auto) 5 % (0-9) Eosinophils (%) (Auto) 1 % (0-3) Basophils (%) (Auto) 0 % (0-3) Neutrophils # (Auto) 7.2 x10^3/uL (1.8-7.7) Lymphocytes # (Auto) 1.7 x10^3/uL (1.0-4.8) Monocytes # (Auto) 0.5 x10^3/uL (0.0-1.1) Eosinophils # (Auto) 0.1 x10^3/uL (0.0-0.7) Basophils # (Auto) 0.0 x10^3/uL (0.0-0.2) Sodium Level 138 mmol/L (136-145) Potassium Level 3.9 mmol/L (3.5-5.1) Chloride Level 104 mmol/L (98-107) Carbon Dioxide Level 26 mmol/L (21-32) Anion Gap 8 (6-14) Blood Urea Nitrogen 12 mg/dL (8-26) Creatinine 1.1 mg/dL (0.7-1.3) Estimated GFR (Cockcroft-Gault) 79.7 Glucose Level 99 mg/dL (70-99) Calcium Level 8.5 mg/dL (8.5-10.1) Assessment and Plan Assessmemt and Plan Problems Medical Problems: (1) Distal radius fracture, left Status: Acute Comment Review of Relevant I have reviewed the following items ani (where applicable) has been applied. Medications: Current Medications Medications (Trade) Dose Ordered Sig/Mar Route PRN Reason Start Time Stop Time Status Last Admin Dose Admin Acetaminophen/ Hydrocodone Bitart (Lortab 5/325) 1 tab 1X ONCE PO 10/26/20 16:00 10/26/20 16:01 DC 10/26/20 15:59 Morphine Sulfate (Morphine Sulfate) 5 mg 1X ONCE IV 10/26/20 18:00 10/26/20 18:01 DC 10/26/20 18:15 Oxycodone/ Acetaminophen (Percocet 5/325) 1 tab PRN Q6HRS PRN PO PAIN mod to sev 10/26/20 21:30 10/26/20 22:18 Morphine Sulfate (Morphine Sulfate) 4 mg PRN Q3HRS PRN IV PAIN 10/26/20 21:30 10/27/20 10:30 Fentanyl Citrate (Fentanyl 2ml Vial) 25 mcg PRN Q5MIN PRN IVP MILD PAIN 1-3 10/27/20 07:00 10/27/20 10:49 DC 10/27/20 07:28 Fentanyl Citrate (Fentanyl 2ml Vial) 50 mcg PRN Q5MIN PRN IVP MODERATE PAIN 4-6 10/27/20 07:00 10/27/20 10:49 DC 10/27/20 09:51 Ringer's Solution 1,000 ml @ 30 mls/hr Q24H IV 10/27/20 07:00 10/27/20 18:59 10/27/20 09:51 Bupivacaine HCl (Sensorcaine Mpf 0.5%) 30 ml STK-MED ONCE .ROUTE 10/27/20 08:17 10/27/20 08:17 DC 10/27/20 08:02 Justifications for Admission Other Justification ROSENDO SANTORO MD Oct 27, 2020 11:01
[2020-10-27] MEDS ORDERED: DOXY100C3 PO (12:54)
--- NOTE | 2020-10-27 13:13 | PDOC3 ---
Discharge Summary Visit Information Date of Admission: Oct 26, 2020 Date of Discharge: Oct 27, 2020 Admitting Diagnosis: Left distal radius fracture Final Diagnosis Problems Medical Problems: (1) Distal radius fracture, left Status: Acute Brief Hospital Course Allergies Allergies Coded Allergies Type Severity Reaction Last Updated Verified No Known Drug Allergies 09/26/15 No Vital Signs Vital Signs Date Time Temp Pulse Resp B/P (MAP) Pulse Ox O2 Delivery O2 Flow Rate FiO2 10/27/20 10:54 97.8 50 18 139/69 (92) 93 Room Air 97.8 10/27/20 10:30 10.0 Lab Results Laboratory Tests Test 10/26/20 18:00 10/26/20 18:05 SARS-CoV-2 Antigen (Rapid) Negative (NEGATIVE) White Blood Count 9.4 x10^3/uL (4.0-11.0) Red Blood Count 4.72 x10^6/uL (4.30-5.70) Hemoglobin 15.2 g/dL (13.0-17.5) Hematocrit 42.8 % (39.0-53.0) Mean Corpuscular Volume 91 fL (79-100) Mean Corpuscular Hemoglobin 32 pg (25-35) Mean Corpuscular Hemoglobin Concent 36 g/dL (31-37) Red Cell Distribution Width 12.7 % (11.5-14.5) Platelet Count 198 x10^3/uL (140-400) Neutrophils (%) (Auto) 76 % (31-73) Lymphocytes (%) (Auto) 18 % (24-48) Monocytes (%) (Auto) 5 % (0-9) Eosinophils (%) (Auto) 1 % (0-3) Basophils (%) (Auto) 0 % (0-3) Neutrophils # (Auto) 7.2 x10^3/uL (1.8-7.7) Lymphocytes # (Auto) 1.7 x10^3/uL (1.0-4.8) Monocytes # (Auto) 0.5 x10^3/uL (0.0-1.1) Eosinophils # (Auto) 0.1 x10^3/uL (0.0-0.7) Basophils # (Auto) 0.0 x10^3/uL (0.0-0.2) Sodium Level 138 mmol/L (136-145) Potassium Level 3.9 mmol/L (3.5-5.1) Chloride Level 104 mmol/L (98-107) Carbon Dioxide Level 26 mmol/L (21-32) Anion Gap 8 (6-14) Blood Urea Nitrogen 12 mg/dL (8-26) Creatinine 1.1 mg/dL (0.7-1.3) Estimated GFR (Cockcroft-Gault) 79.7 Glucose Level 99 mg/dL (70-99) Calcium Level 8.5 mg/dL (8.5-10.1) Laboratory Tests Test 10/26/20 18:00 10/26/20 18:05 SARS-CoV-2 Antigen (Rapid) Negative (NEGATIVE) White Blood Count 9.4 x10^3/uL (4.0-11.0) Red Blood Count 4.72 x10^6/uL (4.30-5.70) Hemoglobin 15.2 g/dL (13.0-17.5) Hematocrit 42.8 % (39.0-53.0) Mean Corpuscular Volume 91 fL (79-100) Mean Corpuscular Hemoglobin 32 pg (25-35) Mean Corpuscular Hemoglobin Concent 36 g/dL (31-37) Red Cell Distribution Width 12.7 % (11.5-14.5) Platelet Count 198 x10^3/uL (140-400) Neutrophils (%) (Auto) 76 % (31-73) Lymphocytes (%) (Auto) 18 % (24-48) Monocytes (%) (Auto) 5 % (0-9) Eosinophils (%) (Auto) 1 % (0-3) Basophils (%) (Auto) 0 % (0-3) Neutrophils # (Auto) 7.2 x10^3/uL (1.8-7.7) Lymphocytes # (Auto) 1.7 x10^3/uL (1.0-4.8) Monocytes # (Auto) 0.5 x10^3/uL (0.0-1.1) Eosinophils # (Auto) 0.1 x10^3/uL (0.0-0.7) Basophils # (Auto) 0.0 x10^3/uL (0.0-0.2) Sodium Level 138 mmol/L (136-145) Potassium Level 3.9 mmol/L (3.5-5.1) Chloride Level 104 mmol/L (98-107) Carbon Dioxide Level 26 mmol/L (21-32) Anion Gap 8 (6-14) Blood Urea Nitrogen 12 mg/dL (8-26) Creatinine 1.1 mg/dL (0.7-1.3) Estimated GFR (Cockcroft-Gault) 79.7 Glucose Level 99 mg/dL (70-99) Calcium Level 8.5 mg/dL (8.5-10.1) Brief Hospital Course Mr Sinclair is a 30-year-old male with PMHx asthma, smoker who presents to the emergency department with left wrist pain after he fell off a swingset attempting to do tricks to impress children. He fell directly onto his outstretched left hand. He reports pain on the backside of his wrist with limited range of motion of the wrist secondary to pain. He denies any skin breakdown. Denies any further bodily injuries. The patient denies nausea, vomiting, fever, chills, chest pain, shortness of breath or any other complaints. Labs with WBC 9.4, Hb 15.9, platelets 198, NA 138, K3.9, BUN 12, CR 1.1 glucose 3.5, rapid COVID-19 negative. No numbness or tingling, appears neurovascularly intact. Left wrist three view with comminuted fracture through the distal radius with intra-articular extension. Placed in splint in ED and given IV Morphine. Admitted for further care with orthopedic surgery consultation 10/27: Seen status post ORIF left wrist pain improved. Complaining of some numbness index and middle finger has poor range of motion. No chest pain or shortness of breath as he will go home. Blood work normal. Advised follow-up in 1 week orthopedic surgery Problem list: Left wrist fracture - given intrarticular involvement s/p ORIF surgical repair. Oxycodone for pain. Patient observed discussing with home insulin this would recommend doxycycline for the infection as this seems inevitable Smoker - counseled for 5 minutes on cessation, offered nicotine patch H/o asthma - no currently breathing problems Greater than 30 minutes spent on discharge [facility] - Dr Santana - follow up in 1 week [id number], [address] [place] [address] or callPhone: Activity Instructions for Disc: Activity as tolerated, (Fine motor use of left hand only such as gently moving the fingers eating writing typing and similar activities no grasping pushing pulling or lifting) Lifting Instructions after Dis: No heavy lifting, No pulling or pushing Driving Instructions after Dis: Do not drive Weight Bearing Status after Di: Non weight bearing Wound/Incision Care: Ice to area for comfort, Do not change dressing (Keep dressing intact along with splint and call if wet ) Discharge Information Condition at Discharge: Improved Follow Up: Weeks (1) Disposition/Orders: D/C to Home Scheduled Chlorhexidine Gluconate (Peridex) 15 Ml Mouthwash, 15-30 ML PO TID for 8 Days, #473 Ref 0 Prescribed by: Deandra Mcclure APRN on 07/13/20 1324 Docusate Sodium (Colace) 100 Mg Capsule, 100 MG PO BID for constipation, #60 Prescribed by: Halie Shaffer on 11/28/18 0849 Doxycycline Hyclate (Doxycycline Hyclate) 100 Mg Capsule, 1 CAP PO BID for Cellulitis for 7 Days, #14 Prescribed by: ROSENDO SANTORO MD on 10/27/20 1254 Gabapentin (Gabapentin ) 300 Mg Capsule, 300 MG PO TID for NEUROGENIC PAIN, #30 Prescribed by: Deandra Mcclure APRN on 11/26/18 0004 Polymyxin B Sulf/Trimethoprim (Polytrim Eye Drops) 10 Ml Drops, 2 DROP EACHEYE Q6HRS for 7 Days, #10 Ref 0 Prescribed by: KIMBERLEE RUST APRN on 09/20/20 1830 Scheduled PRN Oxycodone/Apap 5-325 (Percocet 5-325 Mg Tablet ) 1 Each Tablet, 1 TAB PO PRN Q4HRS PRN for MILD PAIN, 1ST CHOICE, #30 Ref 0 Prescribed by: Halie Shaffer on 11/28/18 0849 Oxycodone/Apap 5-325 (Percocet 5-325 Mg Tablet ) 1 Each Tablet, 1 TAB PO PRN Q4HRS PRN for PAIN, #30 Ref 0 Prescribed by: ASHLY SANTANA on 10/27/20 1022 Discontinued Medications Amoxicillin (Amoxicillin) 875 Mg Tablet, 1 TAB PO BID, #14 Prescribed by: Deandra Mcclure APRN on 06/30/20 1832 Amoxicillin/Potassium Clav (Augmentin 875-125 Tablet) 1 Each Tablet, 1 TAB PO BID for infection, #20 Prescribed by: Halie Shaffer on 11/28/18 0849 Diclofenac Potassium (Diclofenac Potassium) 50 Mg Tablet, 1 TAB PO BID, #20 Ref 0 Prescribed by: Deandra Mcclure APRN on 07/13/20 1324 Diclofenac Sodium (Diclofenac Sodium) 50 Mg Tablet.dr, 1 TAB PO BID, #20 Ref 0 Prescribed by: Deandra Mcclure APRN on 08/04/18 2052 Hydrocodone Bit/Acetaminophen (Hydrocodone-Apap 5-325 ) 1 Tab Tablet, 1 TAB PO PRN Q6HRS PRN for PAIN, #8 Ref 0 Prescribed by: Deandra Mcclure APRN on 06/30/20 1832 Hydrocodone Bit/Acetaminophen (Hydrocodone-Apap 5-325 ) 1 Tab Tablet, 1 TAB PO PRN Q6HRS PRN for PAIN, #8 Ref 0 Prescribed by: Deandra Mcclure APRN on 07/13/20 1324 Naproxen (Naproxen) 500 Mg Tablet, 1 TAB PO BID, #20 Prescribed by: Deandra Mcclure APRN on 11/26/18 0004 Justicifation of Admission Dx: Justifications for Admission: Justification of Admission Dx: ROSENDO Mar MD Oct 27, 2020 13:13
--- NOTE | 2020-10-27 15:33 | NUR ---
Discharge Note: [facility] [address] [place] [address] Discharge instructions and discharge home medications reviewed with Patient and a copy given. All questions have been answered and understanding verbalized. The following instructions and handouts were given: Diet, activity, medication list and follow up instructions provided to patient. Follow up appointment scheduled with Dr. White's [employer], Randolph Jimenez. Discontinued lines and drains: Peripheral IV discontinued and catheter intact. Patient discharged to Home or Self Care with Significant Other via Ambulated
--- NOTE | 2020-10-28 14:24 | PDOC4 ---
Operative Note Operative Note Date of surgery: 10/27/2020 Preoperative diagnosis: Displaced intra-articular left distal radius fracture Postoperative diagnosis: Displaced 2 part intra-articular left distal radius fracture Operative procedure: Operative reduction internal fixation displaced intra- articular left distal radius fracture Surgeon: Christopher Anesthesia: General Estimated blood loss: 20 cc Complications: None Operative indications: Please see my dictated orthopedic consultation for detailed operative indications and note that we covered the possibility of infection nerve or blood vessel damage nonhealing stiffness even under the best of circumstances and the rationale for operative reduction to restore the joint is much as possible and minimize stiffness and degenerative changes as a result. All his questions were answered he wishes to proceed with surgical evaluation and treatment Operative text: Patient was identified procedure verified patient placed in the supine position on the operating table. After adequate amounts of general anesthesia were administered the left upper extremity was prepped and draped in standard sterile fashion with an upper arm tourniquet. After timeout was performed patient procedure identified and verified the left upper extremity was exsanguinated by Esmarch bandage tourniquet inflated to 250 mils mercury and a standard volar Jae approach was carried out to the distal radius subperiosteal dissection was carried out and a [id number] reduction forcep was used to achieve near anatomic reduction of the distal radius particularly at the intra- articular alignment of fragments. A standard short Driss DVR cross lock plate was selected and a single nonlocking screw placed in the sliding hole with fine measurements carried out under fluoroscopy. Distal locking screws were placed starting with a multi directional screw placed into the radial styloid and distal locking screws were placed individually under fluoroscopic guidance. Proximal locking screws were then placed including a multi directional screw placed slightly lateral in the proximal row to avoid the fracture site and joint surface. An additional locking and nonlocking screws were placed in the shaft to provide further shaft fixation of the plate and all hardware was checked under multiple fluoroscopic guidance for adequacy of reduction and hardware plac ement. Thorough Acacian carried out normal saline solution closure accomplished with buried Vicryl suture subcuticular Monocryl Steri-Strips and Mastisol. Sterile dressings were applied followed by a volar Ortho-Glass splint and Luis wrap. Fingers were noted to be warm pink following deflation of tourniquet patient was returned to recovery room in stable condition having tolerated procedure well ASHLY SANTANA MD Oct 28, 2020 14:24
== END 2020-10-27 15:05 | disposition home or self-care (01) ==
LOC: ER 15:21 → 4 NORTH 17:12 → ER 18:45
PROVIDERS: ADMIT Internal Medicine; ATTEND Internal Medicine
DX: S52.572A Other intraarticular fracture of lower end of left radius, initial encounter for closed fracture (principal); Z20.822 Contact with and (suspected) exposure to COVID-19; F12.90 Cannabis use, unspecified, uncomplicated; J45.909 Unspecified asthma, uncomplicated; F17.200 Nicotine dependence, unspecified, uncomplicated; W18.30XA Fall on same level, unspecified, initial encounter; Y93.89 Activity, other specified; Y92.89 Other specified places as the place of occurrence of the external cause; Y99.8 Other external cause status; Z90.49 Acquired absence of other specified parts of digestive tract
CPT/HCPCS: 25608; 36415; 73120; 80048; 85025; 87426; 96374; 96375; 96376; 99284; A4930; A6402; A6449; C1713; G0378; J0690; J1100; J1885; J2250; J2270; J2405; J2704; J3010; J3490; J7120; U0003; U0005; 76000; G0379